=== PATIENT | male | born 1960 | race Caucasian/White ===

== ENCOUNTER → 2018-10-13 | Outpatient (CLI) | payer OTHER ==
--- NOTE | 2018-10-13 15:09 | XR ---
Left shoulder HISTORY: Left shoulder pain 3 views of the left shoulder There is joint space loss, remodeling the humeral head, marginal spurring and subchondral sclerosis a nd geode formation. Alignment is maintained. Left lung apex as visualized is normal. Arthropathy pres ent at the acromioclavicular joint. No fracture or dislocation. IMPRESSION: Osteoarthritis is advanced within the left shoulder.
== END | disposition home or self-care (01) ==
LOC: RADXRMAIN 14:49
PROVIDERS: ATTEND Emergency Medicine
DX: M19.012 Primary osteoarthritis, left shoulder (principal)

== ENCOUNTER → 2019-03-11 | Outpatient (CLI) | payer BC ==
--- NOTE | 2019-03-11 16:54 | P.HPBAR ---
Bariatric H&P - History & Physicial H&P Date: 03/11/19 History & Physicial: Visit/CC: Patient initial contact: Initial weight: Initial weight in pounds: Height: 5 ft 7 in Initial BMI: Last weight: Current weight: 175.812 kg Current weight in pounds: Current BMI: [place] body weight (based on NIH guidelines): Excess body weight loss: The patient is a 58 year-old M who presents for Bariatric Assessment. Highest was 415 pounds and on his own went down to 320 pounds. He needs shoulder surgery and requested by his doctors to have weight loss surgery. He reports new depression with loss of occupation. He has hypertension. He denies sleep apnea. He has history of blood clots. He had lost 100 pounds in the past with a hat band attacher as he had leg swelling. Needs full work-up Recommend EGD Recommend EKG Past Medical History Past Medical History: GERD/Reflux Additional Past Medical History / Comment(s): Meniere's disease (Takes Dyazide for this condition), Left shoulder pain "bone on bone", History of Any Multi-Drug Resistant Organisms: None Reported Past Surgical History: Hernia Repair Additional Past Surgical History / Comment(s): Left leg varicose vein stripping and ablation and sclerotherapy (3 times), Right leg vein stripping and sclerotherapy, (pt states 2 different doctors have told him that he has the "worst veins they've ever seen in their career."), umbilical hernia repair with mesh, stents placed in bilateral exteriror iliac veins and common iliac veins (stents were placed through incisions on back), Past Anesthesia/Blood Transfusion Reactions: No Reported Reaction Additional Past Anesthesia/Blood Transfusion Reaction / Comm: No history of blood transfusions to date Past Psychological History: Depression Additional Psychological History / Comment(s): 03/11/19: Pt states he takes herbal supplements (had been given an antidepressment but it made him deathly sick, was given another med to try but was fearful and so has been doing well on his herbal supplements) Smoking Status: Former smoker Past Alcohol Use History: Occasional Additional Past Alcohol Use History / Comment(s): patient smoked off and on beginning at age 18 quit at age 43, highest smoking amount was 1 pack/day. May have one or two beers/week. Additional Drug Use History / Comment(s): uses hemp oil twice daily - Past Family History Mother Additional Family Medical History / Comment(s): bilateral knee and hip replacement Father Family Medical History: Osteoarthritis (OA) Additional Family Medical History / Comment(s): at age 78 Bariatric Checklist Checklist: Plan: Checklist: EGD: 1. Hiatal hernia: 2. H. Pylori: HgbA1c: Vitamin D: Smoking: Former smoker Primary care physician referral: Psychiatry clearance: Cardiology clearance: Sleep study: Diet journal: VTE risk score: VTE risk level: Rehab needs at discharge:
[2019-03-11 18:03] VITALS: BP 179/82; PULSE 68; TEMP 98.8; BMI 60.7
[2019-03-11 18:03] LABS: HCT 41.5 % (39.0-53.0); HGB 13.4 gm/dL (13.0-17.5); MCH 28.2 pg (25.0-35.0); MCHC 32.4 g/dL (31.0-37.0); Mean Platelet Volume 6.3; Platelet Count 339 k/uL (150-450); RBC 4.76 m/uL (4.30-5.90); RDW 13.5 % (11.5-15.5); WBC 6.9 k/uL (3.8-10.6)
[2019-03-11 18:16] LABS: Partial Thromboplastin Time 25.1 sec (22.0-30.0); Prothrombin Time 10.3 sec (9.0-12.0)
[2019-03-12 00:44] LABS: Iron Saturation 15.29 (15.00-50.00)
[2019-03-12 00:53] LABS: Vitamin D 25 Hydroxy 23.4 ng/mL (30.0-100.0)
[2019-03-12 01:02] LABS: Folate, Serum >24.0 ng/mL
[2019-03-12 01:21] LABS: Hemoglobin A1C 5.7 % (4.0-6.0)
[2019-03-12 01:45] LABS: African American GFR (CKD) 115.7 (60.0-200.0); Albumin 4.2 g/dL (3.80-4.90); Albumin/Globulin Ratio 1.75 (1.60-3.17); Anion Gap 11.2 mmol/L (4.00-12.00); BUN/Creat Ratio 13.75 Ratio (12.00-20.00); Calcium 9.3 mg/dL (8.7-10.3); Carbon Dioxide 27.8 mmol/L (21.6-31.8); Globulin 2.4 g/dL (1.6-3.3); LDL Cholesterol,Calculated 109.2 mg/dL (0.0-131.0); Phosphorus 4.2 mg/dL (2.4-5.1); Total Bilirubin 0.5 mg/dL (0.3-1.2); Total Protein 6.6 g/dL (6.2-8.2); VLDL Calculation 17.8 mg/dL (5.00-40.00)
[2019-03-12 14:15] LABS: Zinc, Serum 80 ug/dL (60-130)
[2019-03-13 06:19] LABS: Vitamin A 63 ug/dL (38-106)
[2019-03-13 06:27] LABS: Vit B1(Thiamine) 90 ug/L (38-122)
== END | disposition home or self-care (01) ==
LOC: BARWHC3 15:22
PROVIDERS: ATTEND Surgery Plastic and Reconstructive Surgery
DX: E66.01 Morbid (severe) obesity due to excess calories (principal); E21.1 Secondary hyperparathyroidism, not elsewhere classified; E89.1 Postprocedural hypoinsulinemia; D50.9 Iron deficiency anemia, unspecified; K90.9 Intestinal malabsorption, unspecified; E55.9 Vitamin D deficiency, unspecified; K76.9 Liver disease, unspecified; N19 Unspecified kidney failure; K50.90 Crohn's disease, unspecified, without complications; Z87.891 Personal history of nicotine dependence
CPT/HCPCS: 36415; 80053; 80061; 82306; 82607; 82728; 82746; 83036; 83540; 83550; 83735; 83970; 84100; 84134; 84255; 84425; 84443; 84590; 84630; 85027; 85610; 85730; 93005

== ENCOUNTER 2019-05-11 11:17 | Day surgery (SDC) | payer BC ==
[2019-05-06 15:35] VITALS: BMI 60.7
--- NOTE | 2019-05-11 07:18 | P.GSHP ---
History of Present Illness H&P Date: 05/11/19 CHIEF COMPLAINT: GERD HISTORY OF PRESENT ILLNESS: The patient is a 58-year-old male who presents reports gastroesophageal reflux disease. Upper endoscopy was offered for further evaluation and management. PAST MEDICAL HISTORY: Please see list. PAST SURGICAL HISTORY: Please see list. MEDICATIONS: Please see list. ALLERGIES: Please see list. SOCIAL HISTORY: No illicit drug use FAMILY HISTORY: No reports of Crohn disease or ulcerative colitis. REVIEW OF ORGAN SYSTEMS: CONSTITUTIONAL: No reports of fevers or chills. GI: Denies any blood in stools or constipation. PHYSICAL EXAM: VITAL SIGNS: Stable GENERAL: Well-developed and pleasant in no acute distress. HEENT: No scleral icterus. Extraocular movements grossly intact. Moist buccal mucosa. NECK: Supple without lymphadenopathy. CHEST: Unlabored respirations. Equal bilateral excursions. CARDIOVASCULAR: Regular rate and rhythm. Distal 2+ pulses. ABDOMEN: Soft, nondistended. MUSCULOSKELETAL: No clubbing, cyanosis, or edema. ASSESSMENT: 1. Gastroesophageal reflux disease PLAN: 1. Recommend proceeding with an upper endoscopy Past Medical History Past Medical History: GERD/Reflux, Hypertension, Osteoarthritis (OA) Additional Past Medical History / Comment(s): Meniere's disease (Takes Dyazide for this condition), Left shoulder pain "bone on bone", History of Any Multi-Drug Resistant Organisms: None Reported Past Surgical History: Hernia Repair Additional Past Surgical History / Comment(s): Left leg varicose vein stripping and ablation and sclerotherapy (3 times), Right leg vein stripping and sclerotherapy, umbilical hernia repair with mesh, stents placed in bilateral exteriror iliac veins and common iliac veins (stents were placed through incisions on back), Past Anesthesia/Blood Transfusion Reactions: No Reported Reaction Additional Past Anesthesia/Blood Transfusion Reaction / Comment(s): No history of blood transfusions to date Smoking Status: Former smoker - Past Family History Mother Family Medical History: No Reported History Additional Family Medical History / Comment(s): bilateral knee and hip replacement Father Family Medical History: Osteoarthritis (OA) Additional Family Medical History / Comment(s): at age 78 Medications and Allergies Home Medications Medication Instructions Recorded Confirmed Type Anxiety/Stress [employer] Brand 1 tab PO HS 03/11/19 05/06/19 History [place] Hemp Oil 20 drop PO BID 03/11/19 05/06/19 History Aspirin [Adult Low Dose Aspirin EC] 81 mg PO DAILY 03/11/19 05/06/19 History Cider Vinegar [Apple Cider Vinegar] 300 mg PO DAILY 03/11/19 05/06/19 History Keli 500 mg PO BID 03/11/19 05/06/19 History Glucosamine Sulfate 1,500 mg PO DAILY 03/11/19 05/06/19 History Meloxicam [Mobic] 15 mg PO DAILY 03/11/19 05/06/19 History Multivit-Min/FA/Lycopen/Lutein 1 each PO DAILY 03/11/19 05/06/19 History [Centrum Silver Tablet] Omeprazole [PriLOSEC] 40 mg PO DAILY 03/11/19 05/06/19 History Triamterene-Hctz 37.5-25Mg 1 cap PO DAILY 03/11/19 05/06/19 History [Dyazide 37.5-25 Capsule] Turmeric Root Extract [Turmeric] 1,000 mg PO BID 03/11/19 05/06/19 History Valerian Root 300 mg PO HS 03/11/19 05/06/19 History Cetirizine HCl [Zyrtec] 10 mg PO DAILY 05/06/19 05/06/19 History Ferrous Sulfate [Feosol] 325 mg PO DAILY 05/06/19 05/06/19 History Losartan Potassium [Cozaar] 50 mg PO DAILY 05/06/19 05/06/19 History Allergies Allergy/AdvReac Type Severity Reaction Status Date / Time morphine Allergy Itching Verified 05/06/19 15:08 nortriptyline Allergy NAUSEA , Verified 05/06/19 15:09 HEADACHE
[~2019-05-11 11:17] MED LIST: LACTATED RINGERS 1,000 ML IV SCH; LIDOCAINE 1% 20 ML VIAL (10MG/ML) FOR IV START INTRADERMA PRN
[2019-05-11 12:12] VITALS: TEMP 97.7
[2019-05-11] MEDS ORDERED: PROPOFOL 10 MG/ML 20 ML VIAL IV ONE (13:01)
[2019-05-11] MEDS ORDERED: LIDOCAINE 1% INJ 10MG/ML (20 ML MDV) ONE (13:01)
[2019-05-11 13:29] VITALS: RESP 18
--- NOTE | 2019-05-11 13:37 | P.PCN ---
Date of Procedure: 05/11/19 Description of Procedure: PREOPERATIVE DIAGNOSIS: Gastroesophageal reflux disease. Morbid obesity. POSTOPERATIVE DIAGNOSIS: Morbid obesity. Gastritis. Gastroesophageal reflux disease. Diaphragmatic hiatal hernia OPERATION: Esophagogastroduodenoscopy with biopsies along antrum. SURGEON: Agnieszka Jennings MD ANESTHESIA: MAC. INDICATIONS: The patient is a 48-year-old female who presents with a history of reflux disease. Benefits and risks of the procedure were described. Informed consent was obtained. DESCRIPTION: The patient was brought into the endoscopy suite and laid in the left lateral decubitus position. An Olympus gastroscope was passed along the posterior oropharynx down to the distal esophagus where the squamocolumnar junction was encountered at 40 cm from the incisors. The stomach was entered and no bile reflux was found. Additional findings are listed below. Biopsies with cold f orceps were obtained of the antrum. The first through third portion of the duodenum was examined and unremarkable. Retroflexion of the scope confirmed Hill grade 2 lower esophageal valve. The squamocolumnar junction demonstrated LA grade B erosive esophagitis. The stomach was desufflated. The patient tolerated the procedure well. FINDINGS: Squamocolumnar junction 40 cm from the incisors. Diaphragmatic hiatus at 40 cm. Hill grade 2 lower esophageal valve. LA grade B erosive esophagitis. No active duodenitis. Chronic gastritis RECOMMENDATIONS: Upper endoscopy as needed. Plan - Discharge Summary Discharge Rx Participant: No New Discharge Prescriptions: No Action Valerian Root 300 mg PO HS Keli 500 mg PO BID Cider Vinegar [Apple Cider Vinegar] 300 mg PO DAILY Multivit-Min/FA/Lycopen/Lutein [Centrum Silver Tablet] 1 each PO DAILY Aspirin [Adult Low Dose Aspirin EC] 81 mg PO DAILY Turmeric Root Extract [Turmeric] 1,000 mg PO BID Glucosamine Sulfate 1,500 mg PO DAILY Omeprazole [PriLOSEC] 40 mg PO DAILY Meloxicam [Mobic] 15 mg PO DAILY Triamterene-Hctz 37.5-25Mg [Dyazide 37.5-25 Capsule] 1 cap PO DAILY Anxiety/Stress [employer] Brand 1 tab PO HS [place] Hemp Oil 20 drop PO BID Losartan Potassium [Cozaar] 50 mg PO DAILY Ferrous Sulfate [Feosol] 325 mg PO DAILY Cetirizine HCl [Zyrtec] 10 mg PO DAILY Discharge Medication List Anxiety/Stress [place] Brand 1 tab PO HS 03/11/19 [History] [place] Hemp Oil 20 drop PO BID 03/11/19 [History] Aspirin [Adult Low Dose Aspirin EC] 81 mg PO DAILY 03/11/19 [History] Cider Vinegar [Apple Cider Vinegar] 300 mg PO DAILY 03/11/19 [History] Keli 500 mg PO BID 03/11/19 [History] Glucosamine Sulfate 1,500 mg PO DAILY 03/11/19 [History] Meloxicam [Mobic] 15 mg PO DAILY 03/11/19 [History] Multivit-Min/FA/Lycopen/Lutein [Centrum Silver Tablet] 1 each PO DAILY 03/11/19 [History] Omeprazole [PriLOSEC] 40 mg PO DAILY 03/11/19 [History] Triamterene-Hctz 37.5-25Mg [Dyazide 37.5-25 Capsule] 1 cap PO DAILY 03/11/19 [History] Turmeric Root Extract [Turmeric] 1,000 mg PO BID 03/11/19 [History] Valerian Root 300 mg PO HS 03/11/19 [History] Cetirizine HCl [Zyrtec] 10 mg PO DAILY 05/06/19 [History] Ferrous Sulfate [Feosol] 325 mg PO DAILY 05/06/19 [History] Losartan Potassium [Cozaar] 50 mg PO DAILY 05/06/19 [History] [facility] [place] [place] [facility] [place] [facility] Patient Instructions/Handouts: *[facility] - (Anesthesia) Endoscopy Discharge Instructions, Upper Endoscopy (DC), Diet for Stomach Ulcers and Gastritis (GEN), Gastritis (DC) Discharge Disposition: HOME SELF-CARE
[2019-05-11 13:41] VITALS: BP 132/77; PULSE 57
== END 2019-05-11 14:12 | disposition home or self-care (01) ==
LOC: ORWHC2ENDO 11:17
PROVIDERS: ATTEND Surgery Plastic and Reconstructive Surgery
DX: K21.0 Gastro-esophageal reflux disease with esophagitis (principal); K29.50 Unspecified chronic gastritis without bleeding; I10 Essential (primary) hypertension; E66.01 Morbid (severe) obesity due to excess calories; Z68.44 Body mass index [BMI] 60.0-69.9, adult; F41.9 Anxiety disorder, unspecified; K44.9 Diaphragmatic hernia without obstruction or gangrene; Z88.5 Allergy status to narcotic agent; Z88.8 Allergy status to other drugs, medicaments and biological substances; Z87.891 Personal history of nicotine dependence; M19.90 Unspecified osteoarthritis, unspecified site; H81.09 Meniere's disease, unspecified ear; Z79.899 Other long term (current) drug therapy; Z79.82 Long term (current) use of aspirin
CPT/HCPCS: 88305; 43239; J2001; J2704

== ENCOUNTER → 2019-05-20 | Outpatient (CLI) | payer BC ==
[2019-05-20 16:18] VITALS: BP 186/115; PULSE 63; TEMP 97.8; BMI 61.0
--- NOTE | 2019-05-20 16:18 | P.PN ---
Subjective Progress Note Date: 05/20/19 DATE OF SERVICE: 05/20/2019 CHIEF COMPLAINT: Morbid obesity HISTORY OF PRESENT ILLNESS: Justo Davis is a 58-year-old male who comes with lifelong morbid obesity. He is looking into the sleeve gastrectomy. He completed an upper endoscopy. He is doing better. No reports of abdominal pain. He comes in with new findings of vitamin deficiency. He also comes in with new EKG abnormalities. At height of 5 feet 7 inches, his ideal body weight is 158 pounds. His highest weight was 415 pounds. His highest BMI was 65.1. He comes in 387 pounds. His body mass index is 60.7. He is 229 pounds overweight. PAST MEDICAL HISTORY: 1. Morbid obesity due to excess calories 2. Body mass index of 65.1, initial 3. Osteoarthritis of the knees. 4. Osteoarthritis of the lower back. 5. Hypertensive heart disease. 6. Gastroesophageal reflux disease 7. DVT legs 8. Meniere's disease 9. Depressive disorder PAST SURGICAL HISTORY: 1. Varicose vein stripping 2. Umbilical hernia repair 3. Stents bilateral common iliac vein HOME MEDICATIONS: Home Medications Medication Instructions Recorded Confirmed Anxiety/Stress [employer] Brand 1 tab PO HS 03/11/19 03/11/19 [place] Hemp Oil 20 drop PO BID 03/11/19 03/11/19 Aspirin [Adult Low Dose Aspirin EC] 81 mg PO DAILY 03/11/19 03/11/19 Cider Vinegar [Apple Cider Vinegar] 300 mg PO DAILY 03/11/19 03/11/19 Keli 500 mg PO BID 03/11/19 03/11/19 Glucosamine Sulfate 1,500 mg PO DAILY 03/11/19 03/11/19 Meloxicam [Mobic] 15 mg PO DAILY 03/11/19 03/11/19 Multivit-Min/FA/Lycopen/Lutein 1 each PO DAILY 03/11/19 03/11/19 [Centrum Silver Tablet] Omeprazole [PriLOSEC] 40 mg PO DAILY 03/11/19 03/11/19 Triamterene-Hctz 37.5-25Mg 1 cap PO DAILY 03/11/19 03/11/19 [Dyazide 37.5-25 Capsule] Turmeric Root Extract [Turmeric] 1,000 mg PO BID 03/11/19 03/11/19 Valerian Root 300 mg PO HS 03/11/19 03/11/19 ALLERGIES: Allergies Allergy/AdvReac Type Severity Reaction Status Date / Time morphine Allergy Itching Verified 03/11/19 16:05 SOCIAL HISTORY: Past tobacco use. FAMILY HISTORY: No family history of ulcerative colitis disease or Crohn's disease. Family history of morbid obesity. No lupus in the family. No reports of stomach or esophageal cancer. REVIEW OF ORGAN SYSTEMS: CONSTITUTIONAL: At height of 5 feet 7 inches, his ideal body weight is 158 pounds. His highest weight was 415 pounds. His highest BMI was 65.1. He comes in 387 pounds. His body mass index is 60.7. He is 229 pounds overweight. HEENT: Denies any active troubles with vision or hearing. ENDOCRINE: No diabetes. No hypothyroidism. CARDIOVASCULAR: No past reports of palpitations or heart attacks or chest pain. RESPIRATORY: Denies daytime somnolence. No asthma. GASTROINTESTINAL: Denies any bright red blood per rectum. No diarrhea. No constipation. MUSCULOSKELETAL: Has lower back pain and joint pain. Has osteoarthritis of the knees. History of bilateral lower extremity edema. NEURO: No headaches. No seizure disorders. PSYCH: Has depression. No suicidal ideation. RHEUMATOLOGIC: No lupus. No rheumatoid arthritis. HEMATOLOGIC: Denies any abnormal bleeding or bruising. Personal history of DVTs. SKIN: No rash. No skin cancer. PHYSICAL EXAM: VITAL SIGNS: Height 5 foot 7 inches, weight 389 pounds. BMI 61.1 Vital Signs Temp 97.8 F 05/20/19 16:16 Pulse 63 05/20/19 16:16 Resp BP 186/115 05/20/19 16:16 Pulse Ox GENERAL: Well-developed in no acute distress. HEENT: No scleral icterus. Extraocular movements grossly intact. Hears conversational speech. No nasal drainage. NECK: Supple without lymphadenopathy. CHEST: Nonlabored respirations with equal bilateral excursions. CARDIOVASCULAR: Regular rate and regular rhythm. Distal 2+ pulses. ABDOMEN: Obese, soft, nontender, nondistended. MUSCULOSKELETAL: No clubbing, cyanosis. Gross strength 5/5 distal lower extremities. NEURO: No focal or lateralizing signs. Cranial nerves 2 through 12 grossly within normal limits. PSYCH: Appropriate affect. Alert and oriented to person, place and time. SKIN: Good skin turgor. Well perfused. Laboratory Last Values WBC 6.9 k/uL (3.8-10.6) 03/11/19 17:42 RBC 4.76 m/uL (4.30-5.90) 03/11/19 17:42 Hgb 13.4 gm/dL (13.0-17.5) 03/11/19 17:42 Hct 41.5 % (39.0-53.0) 03/11/19 17:42 MCV 87.0 fL (80.0-100.0) 03/11/19 17:42 MCH 28.2 pg (25.0-35.0) 03/11/19 17:42 MCHC 32.4 g/dL (31.0-37.0) 03/11/19 17:42 RDW 13.5 % (11.5-15.5) 03/11/19 17:42 Plt Count 339 k/uL (150-450) 03/11/19 17:42 PT 10.3 sec (9.0-12.0) 03/11/19 17:42 INR 1.0 (<1.2) 03/11/19 17:42 APTT 25.1 sec (22.0-30.0) 03/11/19 17:42 Sodium 142 mmol/L (135-145) 03/11/19 17:42 Potassium 4.0 mmol/L (3.5-5.5) 03/11/19 17:42 Chloride 103 mmol/L (96-109) 03/11/19 17:42 Carbon Dioxide 27.8 mmol/L (21.6-31.8) 03/11/19 17:42 Anion Gap 11.20 mmol/L (4.00-12.00) 03/11/19 17:42 BUN 11.0 mg/dL (9.0-27.0) 03/11/19 17:42 Creatinine 0.8 mg/dL (0.6-1.5) 03/11/19 17:42 Est GFR (CKD-EPI)AfAm 115.7 (60.0-200.0) 03/11/19 17:42 Est GFR (CKD-EPI)NonAf 99.9 (60.0-200.0) 03/11/19 17:42 BUN/Creatinine Ratio 13.75 Ratio (12.00-20.00) 03/11/19 17:42 Glucose 86 mg/dL (70-110) 03/11/19 17:[address] Glu mg/dL 117 03/11/19 17:42 Hemoglobin A1c 5.7 % (4.0-6.0) 03/11/19 17:42 Calcium 9.3 mg/dL (8.7-10.3) 03/11/19 17:42 Phosphorus 4.2 mg/dL (2.4-5.1) 03/11/19 17:42 Magnesium 2.0 mg/dL (1.5-2.4) 03/11/19 17:42 Iron 50 ug/dL (65-175) L 03/11/19 17:42 TIBC 327 ug/dL (228-460) 03/11/19 17:42 Iron Saturation 15.29 (15.00-50.00) 03/11/19 17:42 Ferritin 41.5 ng/mL (22.0-322.0) 03/11/19 17:42 Total Bilirubin 0.5 mg/dL (0.3-1.2) 03/11/19 17:42 AST 32 U/L (14-35) 03/11/19 17:42 ALT 24 U/L (10-49) 03/11/19 17:42 Alkaline Phosphatase 62 U/L (41-126) 03/11/19 17:42 Total Protein 6.6 g/dL (6.2-8.2) 03/11/19 17:42 Albumin 4.20 g/dL (3.80-4.90) 03/11/19 17:42 Globulin 2.4 g/dL (1.6-3.3) 03/11/19 17:42 Albumin/Globulin Ratio 1.75 g/dL (1.60-3.17) 03/11/19 17:42 Prealbumin 25.0 mg/dL (18.0-42.0) 03/11/19 17:42 Triglycerides 89.0 mg/dL (0.0-149.0) 03/11/19 17:42 Cholesterol 201 mg/dL (0-200) H 03/11/19 17:42 LDL Cholesterol, Calc 109.2 mg/dL (0.0-131.0) 03/11/19 17:42 VLDL Cholesterol, Calc 17.80 mg/dL (5.00-40.00) 03/11/19 17:42 HDL Cholesterol 74.0 mg/dL (40.0-60.0) H 03/11/19 17:42 Cholesterol/HDL Ratio 2.72 03/11/19 17:42 Vitamin A 63 ug/dL (38-106) 03/11/19 17:42 Vitamin B1 90 ug/L (38-122) 03/11/19 17:42 Vitamin B12 565.0 pg/mL (200.0-944.0) 03/11/19 17:42 Vitamin D 25-Hydroxy 23.4 ng/mL (30.0-100.0) L 03/11/19 17:42 Folate >24.0 ng/mL 03/11/19 17:42 TSH 0.690 uIU/mL (0.350-5.500) 03/11/19 17:42 PTH Intact 50.9 pg/mL (14.0-72.0) 03/11/19 17:42 Selenium 122 mcg/L (63-160) 03/11/19 17:42 Zinc 80 ug/dL (60-130) 03/11/19 17:42 EKG EKG PERFORMED 03/11/19 17:42 Iron is low Vitamin D is low STUDIES: EKG shows right ventricular conduction delay EGD FINDINGS: Squamocolumnar junction 40 cm from the incisors. Diaphragmatic hiatus at 40 cm. Hill grade 2 lower esophageal valve. LA grade B erosive esophagitis. No active duodenitis. Chronic gastritis Final Pathologic Diagnosis GASTRIC ANTRUM, BIOPSIES: Chronic gastritis. Helicobacter organisms are not identified on routine H+E stained sections. ASSESSMENT: 1. Morbid obesity due to excess calories 2. Body mass index of 65.1, initial 3. Osteoarthritis of the knees. 4. Osteoarthritis of the lower back. 5. Hypertensive heart disease. 6. Gastroesophageal reflux disease 7. DVT legs 8. Meniere's disease 9. Depressive disorder 10. Iron deficiency anemia 11. Vitamin D deficiency 12. Chronic gastritis PLAN: 1. Overall, EGD reviewed and medications reviewed. 2. He has EKG abnormality and recommend cardiac risk assessment. 3. Labs reviewed with vitamin D deficiency. 4. [facility] calculator reviewed. Objective - Vital Signs Vital signs: Intake & Output 05/19/19 05/20/19 05/20/19 18:59 06:59 18:59 Weight 176.901 kg
== END | disposition home or self-care (01) ==
LOC: BARWHC3 14:54
PROVIDERS: ATTEND Surgery Plastic and Reconstructive Surgery
DX: E66.01 Morbid (severe) obesity due to excess calories (principal); Z68.44 Body mass index [BMI] 60.0-69.9, adult; M17.10 Unilateral primary osteoarthritis, unspecified knee; M47.816 Spondylosis without myelopathy or radiculopathy, lumbar region; I11.9 Hypertensive heart disease without heart failure; K21.9 Gastro-esophageal reflux disease without esophagitis; I82.409 Acute embolism and thrombosis of unspecified deep veins of unspecified lower extremity; H81.09 Meniere's disease, unspecified ear; F32.9 Major depressive disorder, single episode, unspecified; D50.9 Iron deficiency anemia, unspecified; E55.9 Vitamin D deficiency, unspecified; K29.50 Unspecified chronic gastritis without bleeding; Z87.891 Personal history of nicotine dependence; Z79.82 Long term (current) use of aspirin; Z79.1 Long term (current) use of non-steroidal anti-inflammatories (NSAID); Z79.899 Other long term (current) drug therapy; Z88.6 Allergy status to analgesic agent
CPT/HCPCS: 99211

== ENCOUNTER → 2019-06-08 | Outpatient (CLI) | payer BC ==
[2019-06-08 09:41] VITALS: BMI 60.6
== END | disposition home or self-care (01) ==
LOC: BARWHC3 08:40
PROVIDERS: ATTEND Surgery Plastic and Reconstructive Surgery
DX: E66.01 Morbid (severe) obesity due to excess calories (principal)
CPT/HCPCS: 97804

== ENCOUNTER → 2020-04-19 | Outpatient (CLI) | payer BC, OTHER ==
[2020-04-19 14:54] LABS: Basophils # (A) 0.1 k/uL (0-0.2); Basophils % (A) 1 %; Eosinophils # (A) 0.1 k/uL (0-0.7); Eosinophils % (A) 1 %; HCT 43.9 % (39.0-53.0); HGB 13.8 gm/dL (13.0-17.5); Lymphocytes # (A) 1.2 k/uL (1.0-4.8); Lymphocytes % (A) 15 %; MCH 26.9 pg (25.0-35.0); MCHC 31.5 g/dL (31.0-37.0); MCV 85.3 fL (80.0-100.0); Mean Platelet Volume 6.8; Monocytes # (A) 0.5 k/uL (0-1.0); Monocytes % (A) 7 %; Neutrophils # (A) 6.1 k/uL (1.3-7.7); Neutrophils % (A) 76 %; Platelet Count 346 k/uL (150-450); RBC 5.15 m/uL (4.30-5.90); RDW 13.1 % (11.5-15.5)
[2020-04-19 14:55] LABS: ALT 38 U/L (4-49); AST 45 U/L (17-59); African American GFR (CKD) >90 (>60 ml/min/1.73 sqM); Albumin 4.3 g/dL (3.5-5.0); Alkaline Phosphatase 60 U/L (38-126); Anion Gap 8 mmol/L; Blood Urea Nitrogen 25 mg/dL (9-20); Calcium 9.4 mg/dL (8.4-10.2); Carbon Dioxide 30 mmol/L (22-30); Chloride 94 mmol/L (98-107); Glucose 90 mg/dL (74-99); Non-African American GFR(CKD) >90 (>60 ml/min/1.73 sqM); Potassium 4.5 mmol/L (3.5-5.1); Sodium 132 mmol/L (137-145); Total Bilirubin 0.6 mg/dL (0.2-1.3); Total Protein 7.5 g/dL (6.3-8.2)
== END | disposition home or self-care (01) ==
LOC: LABPAT 13:52
PROVIDERS: ATTEND Surgery Plastic and Reconstructive Surgery
DX: Z01.818 Encounter for other preprocedural examination (principal)
CPT/HCPCS: 36415; 80053; 85025; 86850; 86900; 86901; 93005

== ENCOUNTER 2020-04-25 07:30 | Inpatient (IN) | payer BC ==
--- NOTE | 2020-04-25 06:39 | P.GSHP ---
History of Present Illness H&P Date: 04/25/20 DATE OF SERVICE: 04/25/2020 CHIEF COMPLAINT: Morbid obesity HISTORY OF PRESENT ILLNESS: Justo Davis is a 59-year-old male who comes with lifelong morbid obesity. He is looking into the sleeve gastrectomy. He completed an upper endoscopy. At height of 5 feet 7 inches, his ideal body weight is 158 pounds. His highest weight was 415 pounds. His highest BMI was 65.1. He comes in 386 pounds from 387 pounds, 1 year ago. He lost 1 pound in 1 year. His body mass index is 60.6. He is 228 pounds overweight. PAST MEDICAL HISTORY: 1. Morbid obesity due to excess calories 2. Body mass index of 65.1, initial 3. Osteoarthritis of the knees. 4. Osteoarthritis of the lower back. 5. Hypertensive heart disease. 6. Gastroesophageal reflux disease 7. DVT legs 8. Meniere's disease 9. Depressive disorder PAST SURGICAL HISTORY: 1. Varicose vein stripping 2. Umbilical hernia repair 3. Stents bilateral common iliac vein HOME MEDICATIONS: Home Medications Medication Instructions Recorded Confirmed Anxiety/Stress [employer] 1 tab PO HS 03/11/19 03/11/19 [place] [employer] Oil 20 drop PO BID 03/11/19 03/11/19 Aspirin [Adult Low Dose Aspirin EC] 81 mg PO DAILY 03/11/19 03/11/19 Cider Vinegar [Apple Cider Vinegar] 300 mg PO DAILY 03/11/19 03/11/19 Keli 500 mg PO BID 03/11/19 03/11/19 Glucosamine Sulfate 1,500 mg PO DAILY 03/11/19 03/11/19 Meloxicam [Mobic] 15 mg PO DAILY 03/11/19 03/11/19 Multivit-Min/FA/Lycopen/Lutein 1 each PO DAILY 03/11/19 03/11/19 [Centrum Silver Tablet] Omeprazole [PriLOSEC] 40 mg PO DAILY 03/11/19 03/11/19 Triamterene-Hctz 37.5-25Mg 1 cap PO DAILY 03/11/19 03/11/19 [Dyazide 37.5-25 Capsule] Turmeric Root Extract [Turmeric] 1,000 mg PO BID 03/11/19 03/11/19 Valerian Root 300 mg PO HS 03/11/19 03/11/19 ALLERGIES: Allergies Allergy/AdvReac Type Severity Reaction Status Date / Time morphine Allergy Itching Verified 03/11/19 16:05 SOCIAL HISTORY: Past tobacco use. FAMILY HISTORY: No family history of ulcerative colitis disease or Crohn's disease. Family history of morbid obesity. No lupus in the family. No reports of stomach or esophageal cancer. REVIEW OF ORGAN SYSTEMS: CONSTITUTIONAL: At height of 5 feet 7 inches, his ideal body weight is 158 pounds. His highest weight was 415 pounds. His highest BMI was 65.1. HEENT: Denies any active troubles with vision or hearing. ENDOCRINE: No diabetes. No hypothyroidism. CARDIOVASCULAR: No past reports of palpitations or heart attacks or chest pain. RESPIRATORY: Denies daytime somnolence. No asthma. GASTROINTESTINAL: Denies any bright red blood per rectum. No diarrhea. No constipation. MUSCULOSKELETAL: Has lower back pain and joint pain. Has osteoarthritis of the knees. History of bilateral lower extremity edema. NEURO: No headaches. No seizure disorders. PSYCH: Has depression. No suicidal ideation. RHEUMATOLOGIC: No lupus. No rheumatoid arthritis. HEMATOLOGIC: Denies any abnormal bleeding or bruising. Personal history of DVTs. SKIN: No rash. No skin cancer. PHYSICAL EXAM: VITAL SIGNS: Height 5 foot 7 inches, weight 386 pounds. BMI 60.6 GENERAL: Well-developed in no acute distress. HEENT: No scleral icterus. Extraocular movements grossly intact. Hears conversational speech. No nasal drainage. NECK: Supple without lymphadenopathy. CHEST: Nonlabored respirations with equal bilateral excursions. CARDIOVASCULAR: Regular rate and regular rhythm. Distal 2+ pulses. ABDOMEN: Obese, soft, nontender, nondistended. MUSCULOSKELETAL: No clubbing, cyanosis. Gross strength 5/5 distal lower extremities. NEURO: No focal or lateralizing signs. Cranial nerves 2 through 12 grossly within normal limits. PSYCH: Appropriate affect. Alert and oriented to person, place and time. SKIN: Good skin turgor. Well perfused. ASSESSMENT: 1. Morbid obesity due to excess calories 2. Body mass index of 65.1 to 60.6 3. Osteoarthritis of the knees. 4. Osteoarthritis of the lower back. 5. Hypertensive heart disease. 6. Gastroesophageal reflux disease 7. DVT legs 8. Meniere's disease 9. Depressive disorder 10. Iron deficiency anemia 11. Vitamin D deficiency 12. Chronic gastritis PLAN: 1. Bariatric options between a sleeve, band and a Natasha-en-Y gastric bypass were reviewed in detail. The patient elected for a sleeve gastrectomy. Robotic assisted approach described. 2. The [place] [facility] Data was also reviewed with benefits and risks as described. 3. An 8 page second-generation bariatric consent form was reviewed in detail including potential of bleeding, infection, leaks, adequate weight loss, nutritional deficiencies which the patient demonstrated understanding of the risks. 4. A 2 week high-protein low caloric 800 kcal diet described to address hepatomegaly. 5. Preoperative labs including complete metabolic panel and CBC with type and screen recommended. 6. DVT prophylaxis per [place] [facility]. 7. Antibiotic prophylaxis. 8. Inpatient hospitalization anticipated for more than 2 nights. 9. All questions and concerns were addressed with the patient. Past Medical History Past Medical History: Chest Pain / Angina, Deep Vein Thrombosis (DVT), GERD/Reflux, Hypertension, Osteoarthritis (OA) Additional Past Medical History / Comment(s): Meniere's disease (Takes Dyazide for this condition), Left shoulder pain "bone on bone", varicose veins, sm "irritation in stomach", hx gout, hx gangrene "both lower legs" History of Any Multi-Drug Resistant Organisms: None Reported Past Surgical History: Hernia Repair Additional Past Surgical History / Comment(s): Left leg varicose vein stripping and ablation and sclerotherapy (3 times), Right leg vein stripping and sclerotherapy, umbilical hernia repair with mesh, stents placed in bilateral exteriror iliac veins and common iliac veins , surgery to remove gangrene left lower leg Past Anesthesia/Blood Transfusion Reactions: No Reported Reaction Additional Past Anesthesia/Blood Transfusion Reaction / Comment(s): No history of blood transfusions to date Smoking Status: Former smoker - Past Family History Mother Family Medical History: No Reported History Additional Family Medical History / Comment(s): . Father Family Medical History: Osteoarthritis (OA) Additional Family Medical History / Comment(s): at age 78 Medications and Allergies Home Medications Medication Instructions Recorded Confirmed Type Aspirin [Adult Low Dose Aspirin EC] 81 mg PO DAILY 03/11/19 04/18/20 History Cider Vinegar [Apple Cider Vinegar] 300 mg PO DAILY 03/11/19 04/18/20 History Keli 500 mg PO DAILY 03/11/19 04/18/20 History Multivit-Min/FA/Lycopen/Lutein 1 each PO DAILY 03/11/19 04/18/20 History [Centrum Silver Tablet] Omeprazole [PriLOSEC] 40 mg PO DAILY 03/11/19 04/18/20 History Triamterene-Hctz 37.5-25Mg 1 cap PO DAILY 03/11/19 04/18/20 History [Dyazide 37.5-25 Capsule] Turmeric Root Extract [Turmeric] 1,000 mg PO BID 03/11/19 04/18/20 History Valerian Root 300 mg PO HS 03/11/19 04/18/20 History Cetirizine HCl [Zyrtec] 10 mg PO DAILY PRN 05/06/19 04/18/20 History Ferrous Sulfate [Feosol] 325 mg PO DAILY 05/06/19 04/18/20 History Losartan Potassium [Cozaar] 100 mg PO DAILY 05/06/19 04/18/20 History Naproxen 500 mg PO BID 02/17/20 04/18/20 History Allergies Allergy/AdvReac Type Severity Reaction Status Date / Time morphine Allergy Itching/ Verified 04/18/20 08:54 nortriptyline Allergy NAUSEA , Verified 04/06/20 14:52 HEADACHE
[~2020-04-25 07:30] MED LIST changes: +ACETAMINOPHEN TAB 500 MG TAB PO STA; +CHLORHEXIDINE GLUCONATE 15 ML CUP MUCOUS MEM ONE; +DEXAMETHASONE SOD PHOSPHATE 10 MG/ML 1 ML VIAL IV ONE; +ENOXAPARIN 40 MG/0.4 ML SYRINGE SQ STA; +GABAPENTIN 300 MG CAP PO STA; +HYDROmorphone 0.5 MG/0.5 ML SYRINGE IVP PRN; -LIDOCAINE 1% 20 ML VIAL (10MG/ML) FOR IV START INTRADERMA PRN; +ONDANSETRON 4 MG/2 ML VIAL IVP ONE; +PANTOPRAZOLE 40 MG/10 ML VIAL IV STA; +SCOPOLAMINE 1.5MG/72HR PATCH TRANSDERM ONE; +TAMSULOSIN 0.4 MG CAP.ER.24H PO STA; +ceFAZolin 3 GM in SODIUM CHLORIDE 0.9% 100 ML IVPB ONE
[2020-04-25 08:49] LABS: Glucose,Whole Blood 89 mg/dL (75-99)
[2020-04-25 09:12] LABS: Albumin 4.4 g/dL (3.5-5.0); Calcium 9.3 mg/dL (8.4-10.2); Potassium 3.8 mmol/L (3.5-5.1); Total Bilirubin 0.9 mg/dL (0.2-1.3); Total Protein 7.6 g/dL (6.3-8.2)
[2020-04-25] MEDS ORDERED: NALOXONE 0.4 MG/ML 1 ML VIAL IV PRN (09:58)
[2020-04-25] MEDS ORDERED: ONDANSETRON 4 MG/2 ML VIAL IVP PRN (09:58)
--- NOTE | 2020-04-25 09:58 | P.HPADDEND ---
H&P Addendum H&P Addendum Date: 04/25/20 Notified by anesthesiologist, Dr. Huynh, patient's sodium is extremely low, 129. Patient reports having headaches and troubles with mentation during his two week protein diet and recent weight loss of almost 40 pounds. Patient reports decreased swelling of the bilateral legs. As patient has symptomatic hyponatremia, will admit. Patient re-scheduled for sleeve gastrectomy during current hospitalization after symptomatic hyponatremia resolves
[2020-04-25] MEDS ORDERED: LORATADINE 10 MG TAB PO PRN (10:08)
[2020-04-25] MEDS: SODIUM CHLORIDE 0.9% 1,000 ML IV SCH ×2 (10:33→17:12)
[2020-04-25 13:03] VITALS: BMI 56.8
--- NOTE | 2020-04-25 18:20 | P.PN ---
Progress Note - Text Progress Note Date: 04/25/20 Diet adjusted to bariatric full liquid diet for protein shakes. Patient being seen by medicine for management of hyponatremia. Pending resolution of hyponatremia, sleeve gastrectomy for Saturday
--- NOTE | 2020-04-25 19:05 | P.CONS ---
History of Present Illness - Reason for Consult Consult date: 04/25/20 Hyponatremia Requesting physician: Agnieszka Jennings - Chief Complaint Hyponatremia - History of Present Illness 59-year-old male with PMH of morbid obesity, hypertension, DVT completed Coumadin therapy presents to [facility] for elective surgery. He was planned to undergo gastric sleeve. His surgery got held due to hyponatremia. [facility] physicians has been consulted for medical management of this patient. Patient reports vague headaches has been ongoing for the past 2 days. He reports lightheadedness especially when going from a laying or sitting to a standing position. He denies any lower extremity edema, nausea or vomiting, fever or chills, cough, chest pain, shortness of breath, palpitations, changes in urination or bowel habits. No numbness/weakness/tingling of the extremities. Of note, patient reports a restricted diet to 800 josue over the last few weeks. He has also reporting decreased salt intake. Review of Systems Pertinent positives and negatives as discussed in HPI, a complete review of systems was performed and all other systems are negative. Past Medical History Past Medical History: Chest Pain / Angina, Deep Vein Thrombosis (DVT), GERD/Reflux, Hypertension, Osteoarthritis (OA) Additional Past Medical History / Comment(s): Meniere's disease (Takes Dyazide for this condition), LEFT LEG DVT; Left shoulder pain "bone on bone", varicose veins, "irritation in stomach", hx gout, LEFT LEG GANGRENE History of Any Multi-Drug Resistant Organisms: None Reported Past Surgical History: Hernia Repair Additional Past Surgical History / Comment(s): Left leg varicose vein stripping and ablation and sclerotherapy (3 times), Right leg vein stripping and sclerotherapy, umbilical hernia repair with mesh, stents placed in bilateral exteriror iliac veins and common iliac veins , surgery to remove gangrene left lower leg Past Anesthesia/Blood Transfusion Reactions: No Reported Reaction Additional Past Anesthesia/Blood Transfusion Reaction / Comm: No history of blood transfusions to date Past Psychological History: Depression Smoking Status: Former smoker Past Alcohol Use History: Occasional Additional Past Alcohol Use History / Comment(s): STARTED SMOKING AT AGE 17 QUIT ON AND OFF LAST QUIT AT AGE 43 SMOKED 3/4 - 1PPD Past Drug Use History: None Reported - Past Family History Mother Family Medical History: No Reported History Additional Family Medical History / Comment(s): . Father Family Medical History: Osteoarthritis (OA) Additional Family Medical History / Comment(s): at age 78 Medications and Allergies Home Medications Medication Instructions Recorded Confirmed Type Aspirin [Adult Low Dose Aspirin EC] 81 mg PO DAILY 03/11/19 04/18/20 History Cider Vinegar [Apple Cider Vinegar] 300 mg PO DAILY 03/11/19 04/18/20 History Keli 500 mg PO DAILY 03/11/19 04/18/20 History Multivit-Min/FA/Lycopen/Lutein 1 each PO DAILY 03/11/19 04/18/20 History [Centrum Silver Tablet] Omeprazole [PriLOSEC] 40 mg PO DAILY 03/11/19 04/18/20 History Triamterene-Hctz 37.5-25Mg 1 cap PO DAILY 03/11/19 04/18/20 History [Dyazide 37.5-25 Capsule] Turmeric Root Extract [Turmeric] 1,000 mg PO BID 03/11/19 04/18/20 History Valerian Root 300 mg PO HS 03/11/19 04/18/20 History Cetirizine HCl [Zyrtec] 10 mg PO DAILY PRN 05/06/19 04/18/20 History Ferrous Sulfate [Feosol] 325 mg PO DAILY 05/06/19 04/18/20 History Losartan Potassium [Cozaar] 100 mg PO DAILY 05/06/19 04/18/20 History Naproxen 500 mg PO BID 02/17/20 04/18/20 History Allergies Allergy/AdvReac Type Severity Reaction Status Date / Time morphine Allergy Itching/ Verified 04/18/20 08:54 nortriptyline Allergy NAUSEA , Verified 04/06/20 14:52 HEADACHE Physical Exam Vitals: Vital Signs Temp Pulse Pulse Resp BP BP Pulse Ox 04/25/20 11:00 97.9 F 66 16 127/76 98 04/25/20 10:52 97.9 F 68 18 127/76 97 04/25/20 08:56 96.8 F L 67 20 127/69 99 04/25/20 08:38 96.8 F L 67 20 127/69 99 Intake and Output 04/24/20 04/25/20 04/25/20 22:59 06:59 14:59 Intake Total 200 Balance 200 Intake: IV 200 Other: Weight 174.6 kg General: [non toxic], [no distress], [appears at stated age], morbidly obese Derm: [warm], [dry] Head: [atraumatic], [normocephalic], [symmetric] Eyes: [EOMI], [no lid lag], [anicteric sclera] Mouth: [no lip lesion], [mucus membranes moist] Cardiovascular: [S1S2 reg], [no murmur], [positive posterior tibial pulse bilateral], Lungs: [CTA bilateral], [no rhonchi, no rales] , [no accessory muscle use] Abdominal: [soft], [ nontender to palpation], [no guarding], [no appreciable organomegaly] Ext: [no gross muscle atrophy], [no edema], [no contractures] Neuro: [ CN II-XI grossly intact], [no focal neuro deficits] Psych: [Alert], [oriented], [appropriate affect] Results CBC & Chem 7: 04/25/20 08:43 Labs: Abnormal Lab Results - Last 24 Hours (Table) 04/25/20 Range/Units 08:43 Sodium 129 L (137-145) mmol/L Chloride 92 L (98-107) mmol/L BUN 30 H (9-20) mg/dL AST 77 H (17-59) U/L ALT 56 H (4-49) U/L Assessment and Plan Assessment: Symptomatic hypochloremic hyponatremia, hypovolemic Elevated liver enzymes Hypertension GERD Morbid obesity with BMI 56.8 Patient's hyponatremia is likely hypovolemic related to diuretic use and low salt intake. Losartan, triamterene and hydrochlorothiazide will be held. Patient has been started on normal saline at 130 mL/h. Urine and serum osmolality ordered along with urine sodium. We will repeat BMP this afternoon. His elevated liver enzymes is likely related to fatty liver and his LFT will be repeated tomorrow morning. His vital signs are currently stable and will be watched, medications adjusted if necessary. Continue Protonix for GERD. General surgery on board for sleeve gastrectomy. He is on Lovenox for DVT prophylaxis. Thank you for this consultation. We will continue to follow this patient through his clinical course. Please call sound physicians with any additional questions or concerns.
[2020-04-26] MEDS: SODIUM CHLORIDE 0.9% 1,000 ML IV SCH ×3 (01:13→16:07)
[2020-04-26 06:21] LABS: Basophils % (A) 1 %; Eosinophils % (A) 1 %; HCT 37.8 % (39.0-53.0); HGB 12.3 gm/dL (13.0-17.5); Lymphocytes # (A) 1.2 k/uL (1.0-4.8); Lymphocytes % (A) 22 %; MCH 27.3 pg (25.0-35.0); MCHC 32.4 g/dL (31.0-37.0); MCV 84.2 fL (80.0-100.0); Mean Platelet Volume 6.9; Monocytes # (A) 0.5 k/uL (0-1.0); Monocytes % (A) 9 %; Neutrophils # (A) 3.4 k/uL (1.3-7.7); Neutrophils % (A) 66 %; Platelet Count 276 k/uL (150-450); RBC 4.48 m/uL (4.30-5.90); WBC 5.2 k/uL (3.8-10.6)
[2020-04-26 09:32] LABS: Magnesium 1.7 mg/dL (1.5-2.4); Phosphorus 2.9 mg/dL (2.4-5.1)
[2020-04-26] MEDS: ENOXAPARIN 40 MG/0.4 ML SYRINGE SQ SCH (10:25)
[2020-04-26] MEDS: PANTOPRAZOLE 40 MG/10 ML VIAL IV SCH (10:28)
--- NOTE | 2020-04-26 13:43 | P.PN ---
Subjective Progress Note Date: 04/26/20 Patient was seen and examined. No acute events overnight. Patient denies any headaches or lightheadedness today. He denies any chest pain, shortness of breath or palpitations. No nausea or vomiting. No fever or chills. Objective - Vital Signs Vital signs: Vital Signs Temp 97.9 F 04/26/20 12:19 Pulse 54 L 04/26/20 12:19 Resp 18 04/26/20 12:19 BP 163/91 04/26/20 12:19 Pulse Ox 99 04/26/20 12:19 Intake & Output 04/25/20 04/26/20 04/26/20 18:59 06:59 18:59 Intake Total 520 Output Total 1000 Balance -480 Weight 174.6 kg Intake: IV 200 Oral 320 Output: Urine 1000 Other: Voiding Method Toilet # Voids 1 - Exam General: [non toxic], [no distress], [appears at stated age], morbidly obese Derm: [warm], [dry] Head: [atraumatic], [normocephalic], [symmetric] Eyes: [EOMI], [no lid lag], [anicteric sclera] Mouth: [no lip lesion], [mucus membranes moist] Cardiovascular: [S1S2 reg], [no murmur], [positive posterior tibial pulse bilateral], Lungs: [CTA bilateral], [no rhonchi, no rales] , [no accessory muscle use] Abdominal: [soft], [ nontender to palpation], [no guarding], [no appreciable organomegaly] Ext: [no gross muscle atrophy], [no edema], [no contractures] Neuro: [no focal neuro deficits] Psych: [Alert], [oriented], [appropriate affect] - Labs CBC & Chem 7: 04/26/20 06:05 04/26/20 06:06 Labs: Abnormal Lab Results - Last 24 Hours (Table) 04/26/20 04/26/20 Range/Units 06:05 06:06 Hgb 12.3 L (13.0-17.5) gm/dL Hct 37.8 L (39.0-53.0) % Sodium 133 L (135-145) mmol/L Assessment and Plan Assessment: Symptomatic hypochloremic hyponatremia, hypovolemic Elevated liver enzymes Hypertension GERD Morbid obesity with BMI 56.8 His sodium is improved from 129-133. Patient's hyponatremia is likely hypovolemic related to diuretic use and low salt intake. Losartan, triamterene and hydrochlorothiazide has been held. Patient has been started on normal saline at 130 mL/h. repeat BMP tomorrow morning. His elevated liver enzymes is likely related to fatty liver and his LFT will be repeated tomorrow morning. Patient will be started on amlodipine by mouth. His vital signs are currently stable and will be watched, medications adjusted if necessary. Continue Protonix for GERD. General surgery on board for sleeve gastrectomy. He is on Lovenox for DVT prophylaxis. Thank you for this consultation. We will continue to follow this patient through his clinical course. Please call sound physicians with any additional questions or concerns.
[2020-04-26] MEDS: amLODIPine 5 MG TAB PO SCH (14:01)
--- NOTE | 2020-04-26 14:36 | P.PN ---
Subjective Progress Note Date: 04/26/20 CHIEF COMPLAINT: Morbid obesity HISTORY OF PRESENT ILLNESS: Patient had to postpone the sleeve gastrectomy due to symptomatic hyponatremia. Sodium has now come up from 129-133. He is feeling better. Patient's headache has improved. He denies any nausea or vomiting. He reports regular bowel movements. He is afebrile. WBC 5.2. Magnesium 1.7 PHYSICAL EXAM: VITAL SIGNS: Reviewed GENERAL: Well-developed in no acute distress. HEENT: No sclera icterus. Extraocular movements grossly intact. Moist buccal mucosa. Head is atraumatic, normocephalic. Hears conversational speech. No nasal drainage. NECK: Supple without lymphadenopathy. CHEST: Non-labored respirations and equal bilateral excursions. CARDIOVASCULAR: Palpable 2+ radial pulses. ABDOMEN: Soft. Nondistended. Nontender. MUSCULOSKELETAL: No clubbing or cyanosis. NEUROLOGIC: No focal or lateralizing signs. Cranial nerves II through XII grossly intact. PSYCH: Appropriate affect. Alert and oriented to person, place and time. SKIN: Well perfused. Good skin turgor. ASSESSMENT: 1. Morbid obesity 2. Hypovolemic hyponatremia 3. Hypomagnesemia PLAN: -Patient is tentatively scheduled for robotic sleeve gastrectomy tomorrow, 04/27/[address] Jennings -Patient nothing by mouth after midnight -Continue with IV fluids, normal saline at 130 cc per hour -Continue to monitor sodium level -Continue to hold diuretics -Replace magnesium and recheck lab in a.m. Physician Airplane Pilot Supervisor note has been reviewed by physician. Signing provider agrees with the documented findings, assessment, and plan of care. Objective - Vital Signs Vital signs: Vital Signs Temp 97.9 F 04/26/20 12:19 Pulse 54 L 04/26/20 12:19 Resp 18 04/26/20 12:19 BP 163/91 04/26/20 12:19 Pulse Ox 99 04/26/20 12:19 Intake & Output 04/25/20 04/26/20 04/26/20 18:59 06:59 18:59 Intake Total 520 200 Output Total 1000 Balance -480 200 Weight 174.6 kg Intake: IV 200 Oral 320 200 Output: Urine 1000 Other: Voiding Method Toilet # Voids 1 - Labs CBC & Chem 7: 04/26/20 06:05 04/26/20 06:06 Labs: Abnormal Lab Results - Last 24 Hours (Table) 04/26/20 04/26/20 Range/Units 06:05 06:06 Hgb 12.3 L (13.0-17.5) gm/dL Hct 37.8 L (39.0-53.0) % Sodium 133 L (135-145) mmol/L
[2020-04-26] MEDS ORDERED: MAGNESIUM SULFATE-D5W PMX 1 GM in DEXTROSE/WATER 1 100ML.BAG IVPB ONE (15:00)
[2020-04-27] MEDS: SODIUM CHLORIDE 0.9% 1,000 ML IV SCH ×3 (00:19→18:07)
[2020-04-27] MEDS ORDERED: fentaNYL (PF) 50 MCG/ML 2 ML AMP IVP PRN (06:00)
[2020-04-27] MEDS ORDERED: ONDANSETRON 4 MG/2 ML VIAL IVP ONE (06:00)
[2020-04-27] MEDS ORDERED: HYDROmorphone 0.5 MG/0.5 ML SYRINGE IVP PRN (06:00)
[2020-04-27] MEDS ORDERED: MIDAZOLAM 2 MG/2 ML VIAL IV PRN (06:00)
[2020-04-27] MEDS ORDERED: fentaNYL (PF) 50 MCG/ML 2 ML AMP IV PRN (06:00)
[2020-04-27] MEDS ORDERED: ceFAZolin 3 GM in SODIUM CHLORIDE 0.9% 100 ML IVPB ONE (06:15)
[2020-04-27] MEDS ORDERED: CHLORHEXIDINE GLUCONATE 15 ML CUP MUCOUS MEM ONE (06:15)
[2020-04-27] MEDS ORDERED: GABAPENTIN 300 MG CAP PO STA (06:20)
[2020-04-27] MEDS ORDERED: ACETAMINOPHEN TAB 500 MG TAB PO STA (06:20)
[2020-04-27] MEDS ORDERED: TAMSULOSIN 0.4 MG CAP.ER.24H PO STA (06:20)
--- NOTE | 2020-04-27 06:25 | P.HPADDEND ---
H&P Addendum H&P Addendum Date: 04/27/20 Patient low sodium has improved from 129 to 133. Patient is clinically stable. Will proceed with sleeve gastrectomy.
[2020-04-27] MEDS: amLODIPine 5 MG TAB PO SCH (09:02)
[2020-04-27] MEDS: PANTOPRAZOLE 40 MG/10 ML VIAL IV SCH (09:02)
[2020-04-27] MEDS: ENOXAPARIN 40 MG/0.4 ML SYRINGE SQ SCH (09:38)
[2020-04-27] MEDS ORDERED: IV FLUID CONTINUATION 1,000 ML IV ONE (10:53)
[2020-04-27] MEDS ORDERED: DEXAMETHASONE SOD PHOSPHATE 10 MG/ML 1 ML VIAL IV ONE (11:11)
[2020-04-27 11:37] LABS: ALT 45 U/L (4-49); AST 44 U/L (17-59); African American GFR (CKD) >90 (>60 ml/min/1.73 sqM); Albumin 3.5 g/dL (3.5-5.0); Albumin/Globulin Ratio 1.3; Alkaline Phosphatase 38 U/L (38-126); Anion Gap 7 mmol/L; Blood Urea Nitrogen 11 mg/dL (9-20); Calcium 8.5 mg/dL (8.4-10.2); Carbon Dioxide 23 mmol/L (22-30); Chloride 102 mmol/L (98-107); Globulin 2.7 g/dL; Glucose 85 mg/dL (74-99); Non-African American GFR(CKD) >90 (>60 ml/min/1.73 sqM); Potassium 3.7 mmol/L (3.5-5.1); Sodium 132 mmol/L (137-145); Total Bilirubin 0.5 mg/dL (0.2-1.3); Total Protein 6.2 g/dL (6.3-8.2)
[2020-04-27] MEDS ORDERED: fentaNYL (PF) 50 MCG/ML 2 ML AMP ONE (12:35)
[2020-04-27] MEDS ORDERED: SUCCINYLCHOLINE CHLORIDE VIAL 200 MG/10 ML VIAL IV ONE (12:35)
[2020-04-27] MEDS ORDERED: NEOSTIGMINE 1 MG/ML 10 ML VIAL ONE (12:35)
[2020-04-27] MEDS ORDERED: GLYCOPYRROLATE 0.2 MG/ML 2 ML VIAL ONE (12:35)
[2020-04-27] MEDS ORDERED: HYDROmorphone (PF) 1 MG/ML ONE (12:35)
[2020-04-27] MEDS ORDERED: PROPOFOL 10 MG/ML 20 ML VIAL IV ONE (12:35)
[2020-04-27] MEDS ORDERED: ROCURONIUM BROMIDE 10 MG/ML 5 ML VIAL IV ONE (12:35)
[2020-04-27] MEDS ORDERED: LIDOCAINE 1% INJ 10MG/ML (20 ML MDV) ONE (12:35)
[2020-04-27] MEDS ORDERED: MIDAZOLAM 2 MG/2 ML VIAL ONE (12:35)
[2020-04-27] MEDS ORDERED: LIDOCAINE 1%-EPI 1:100,000 20 ML VIAL SQ ONE (12:39)
[2020-04-27] MEDS ORDERED: LACTATED RINGERS 1,000 ML IV ONE ×2 (12:40→15:11)
[2020-04-27] MEDS: ONDANSETRON 4 MG/2 ML VIAL IVP SCH ×2 (15:30→18:25)
[2020-04-27] MEDS ORDERED: ACETAMINOPHEN IV (For NPO) 1,000 MG in EMPTY BAG 1 BAG IVPB ONE (16:02)
[2020-04-27] MEDS ORDERED: fentaNYL PCA 500 MCG/50 ML BAG IV PRN (16:08)
[2020-04-27] MEDS ORDERED: NALOXONE 0.4 MG/ML 1 ML VIAL IV PRN (16:08)
--- NOTE | 2020-04-27 16:11 | P.OP ---
Date of Procedure: 04/27/20 Description of Procedure: SURGEON: KARON OROZCO MD PREOPERATIVE DIAGNOSES: 1. Morbid obesity. POSTOPERATIVE DIAGNOSES: 1. Morbid obesity. OPERATION: 1. Robotic assisted daVinci Xi laparoscopic sleeve gastrectomy with 40-Belizean bougie, multiport. 2. Intraoperative esophagogastroduodenoscopy. ANESTHESIA: Gen. local anesthetic ESTIMATED BLOOD LOSS: 30 mL SPECIMENS REMOVED: Sleeve gastrectomy COMPLICATIONS: None. INDICATIONS: is a 59-year-old male with long-standing morbid obesity. He is looking into a sleeve gastrectomy. All surgical options for morbid obesity had been described using the [place] bariatric surgery collaborative comorbidity resolution including complication risk score. A second-generation bariatric consent form was described in detail including the possibility of protein malnutrition, leaks, gastric stricture, venous thrombosis, gastroesophageal reflux disease, need for further surgery for which he demonstrated understanding. Benefits and risks of the procedure were described at length. Informed consent was obtained. DESCRIPTION: The patient was brought into the operating room theater. Preoperatively he had received Lovenox subcutaneously for DVT prophylaxis. Additionally he had Peridex oral solution as an oral decontaminant. After general induction, the abdomen was prepped and draped in standard sterile fashion. An Ioban draping was placed along the abdomen. Lucio catheter was placed. A robotic da Kassie Xi system was prepped and primed. At 15 cm from the xiphoid, proposed port sites were marked with indelible marker along the anterior axillary line bilaterally, mid axillary line bilaterally with each ports were marked 10 to 15 cm from each other. The autopsy assistant port was marked along the left lateral abdominal wall. The robotic stapler port was marked for the right midclavicular line. A 5 mm 0 degrees laparoscopic trocar entry was performed along the left upper quadrant. The abdomen was insufflated to 15 mmHg pressure he tolerated well. Diagnostic laparoscopy demonstrated no injury to bowel, viscera, or mesentery. The liver surface was unremarkable without evidence of hepatomegaly or fatty liver disease. No injury had occurred to the small bowel or viscera. Along the hiatus no recurrent hiatal hernia was found. A 8 mm port was placed along the right upper abdominal wall after exchanging the 5 mm port. A separate 8 mm port was placed along the left lateral abdominal wall. Please note that the ports were placed at least 20 cm away from the target anatomy. Care was taken to check each robotic arms were safely away from collision with the bed or the patient. At the epigastrium, a medium sized N athanson liver retractor was placed under direct visualization with the Iron Disposal Plant Operator placed under the right shoulder of the patient. Next, 12-mm robot stapler port was placed along the right upper quadrant. The camera 8-mm port was maintained along the epigastrium. The patient was repositioned in reverse Trendelenburg position at 16-degrees after lowering the bed. The robot was docked along the left side of the patient. Using a grasper for arm 4, a veseel sealer for arm 3, including grasper for arm 1, the robotic system was docked and primed as described. Instruments were interchanged by the autopsy assistant for stapler loads. The camera was placed at 30-degrees down. I had sat at the console. The pylorus was identified and 6 cm proximally along the greater curvature of the stomach, the short gastrics were mobilized upwards to the angle of His using a vessel sealer. Hemostasis was excellent during this portion of the procedure. Next, the upper pole of the stomach was adherent to the left serjio, which was gently dissected free using atraumatic grasper. The nursing web press roll tender placed a 40-Belizean blunted tip bougie into the stomach. Robotic stapler black loads 60 mm x 2 followed by green 60 mm x 3 were used to create the sleeve. Initial firing was across the antrum of the stomach towards the angle of His. The staple line was completely hemostatic and linear without corkscrewing. Hemostasis was excellent. The space from the angularis incisura of the sleeve was approximately 4 cm. I then went to the head of the bed to perform the intraoperative esophagogastroduodenoscopy leak test. The upper pole of the stomach was bathed using normal saline solution. The scope was withdrawn with careful inspection along the staple line for which no leaks were found along the entire length. Additionally, the sleeve was completely hemostatic without any encroachment along the angularis incisura. Its topology was a soft "J". No stricture was encountered upon placement of the scope. The GI tract was desufflated. The patient tolerated this portion of the procedure well. The scope was completely withdrawn. The robot was undocked. I then rescrubbed into case, whereby the irrigation fluid was aspirated from the abdominal cavity. Tisseel fibrin sealant was placed along the entire staple length. Once dried the Cally liver retractor was removed. Attention was now brought to removal of the specimen. The distal end of the sleeve gastrectomy specimen was brought out through the 12 mm port at the left upper quadrant. The specimen was gently removed en total, corresponding to 20.5 cm x 5.5 cm sleeve gastrectomy specimen. No contamination had occurred during this process. All instruments and pneumoperitoneum including irrigation fluid was removed from the abdominal cavity. The 12 mm port site was irrigated with warm normal saline solution and diluted hydron peroxide. The 12-mm port site was reapproximated using 0 Vicryl and Ish-Curtis of the left upper quadrant. The final incisions were closed using subcuticular interrupted suture of 4-0 Monocryl. Dermabond was applied to the skin once the skin had been cleansed. OptiFoam dressing was placed along the stomach extraction site. At the end of the procedure, needle, sponge, and instrument count was verified correct by the medical or surgical instrument maker. The patient was taken to the postanesthesia care unit in stable condition. He had tolerated the procedure well. Intraoperative films and findings were reviewed with the patient's family. FINDINGS: 1. Negative intraoperative esophagogastrojejunoscopy leak test. 2. No large hiatus hernia. 3. Total of 7 staplers used including 1 - 60 mm black and 2 - 60 mm green and 4- greesn robot kaden used to create the gastric sleeve. 4. Sleeve gastrectomy 30 x 5 cm
[2020-04-27] MEDS ORDERED: ACETAMINOPHEN IV (For NPO) 1,000 MG/100 ML VIAL IVPB ONE (16:18)
[2020-04-27] MEDS: LACTATED RINGERS 1,000 ML IV SCH (16:58)
[2020-04-27] MEDS: 0.9% NACL WITH KCL 20 MEQ/L 1,000 ML IV SCH (17:38)
[2020-04-27] MEDS: HYOSCYAMINE ORAL DROPS 1.875 MG/15 ML BOTTLE PO SCH (18:26)
[2020-04-27] MEDS: ACETAMINOPHEN IV (For NPO) 1,000 MG in EMPTY BAG 1 BAG IVPB SCH (18:30)
[2020-04-27] MEDS: SIMETHICONE 40 MG/0.6 ML DROPS 2,000 MG/30 ML BOTTLE PO SCH (18:34)
[2020-04-27] MEDS: ALBUTEROL NEBULIZED 2.5 MG/3 ML INHALATION SCH (20:01)
[2020-04-28] MEDS: SODIUM CHLORIDE 0.9% 1,000 ML IV SCH (00:02)
[2020-04-28] MEDS: 0.9% NACL WITH KCL 20 MEQ/L 1,000 ML IV SCH ×2 (00:37→06:23)
[2020-04-28] MEDS: ceFAZolin 3 GM in SODIUM CHLORIDE 0.9% 100 ML IVPB SCH ×2 (00:38→09:45)
[2020-04-28] MEDS: ACETAMINOPHEN IV (For NPO) 1,000 MG in EMPTY BAG 1 BAG IVPB SCH ×3 (00:38→13:02)
[2020-04-28] MEDS: ONDANSETRON 4 MG/2 ML VIAL IVP SCH ×4 (00:41→17:11)
[2020-04-28] MEDS: HYOSCYAMINE ORAL DROPS 1.875 MG/15 ML BOTTLE PO SCH ×4 (00:41→17:11)
[2020-04-28] MEDS: SIMETHICONE 40 MG/0.6 ML DROPS 2,000 MG/30 ML BOTTLE PO SCH ×4 (00:41→17:11)
[2020-04-28] MEDS: LACTATED RINGERS 1,000 ML IV SCH (06:25)
[2020-04-28 06:28] LABS: Basophils % (A) 0 %; Eosinophils # (A) 0.1 k/uL (0-0.7); Eosinophils % (A) 1 %; HGB 11.3 gm/dL (13.0-17.5); Lymphocytes # (A) 1.1 k/uL (1.0-4.8); Lymphocytes % (A) 15 %; MCH 27.6 pg (25.0-35.0); MCHC 32.3 g/dL (31.0-37.0); MCV 85.3 fL (80.0-100.0); Mean Platelet Volume 6.9; Monocytes # (A) 0.6 k/uL (0-1.0); Monocytes % (A) 8 %; Neutrophils # (A) 5.6 k/uL (1.3-7.7); Neutrophils % (A) 74 %; Platelet Count 298 k/uL (150-450); RBC 4.11 m/uL (4.30-5.90); RDW 13.4 % (11.5-15.5); WBC 7.5 k/uL (3.8-10.6)
[2020-04-28] MEDS ORDERED: 0.9% NACL WITH KCL 20 MEQ/L 1,000 ML IV SCH (08:00)
[2020-04-28] MEDS: ALBUTEROL NEBULIZED 2.5 MG/3 ML INHALATION SCH ×4 (08:10→21:14)
--- NOTE | 2020-04-28 08:14 | FL ---
EXAMINATION TYPE: FL UGI DATE OF EXAM: 04/28/2020 LIMITED UGI: CLINICAL HISTORY: Morbid Obesity, gastric sleeve surgery yesterday. TECHNIQUE: Limited upper GI-esophagram is performed utilizing 25 oz of Isovue-370. A total of 17 sec onds of fluoroscopic time was utilized during procedure. 26 spot images saved to PACS. COMPARISON: None. FINDINGS: Exam slightly suboptimal secondary to patient's large body habitus. The patient swallowed contrast without difficulty or delay. Esophageal peristalsis and motility are within normal limits. There is good flow of contrast along the diaphragmatic hiatus into proximal stomach and subsequent m ild delay in flow at proximal anastomosis into sleeve. There is mild delay in flow from distal sleeve an anastomosis into pylorus and duodenal sweep. Patient remains asymptomatic. There is no evidence o f contrast extravasation to suggest leak. IMPRESSION: No evidence of leak or significant obstruction status post recent gastric sleeve surgery yesterday.
[2020-04-28 09:20] LABS: African American GFR (CKD) 114.9 (60.0-200.0); Albumin 3.4 g/dL (3.80-4.90); Anion Gap 6.8 mmol/L (4.00-12.00); BUN/Creat Ratio 12.5 Ratio (12.00-20.00); Calcium 8.3 mg/dL (8.7-10.3); Carbon Dioxide 25.2 mmol/L (21.6-31.8); Globulin 1.7 g/dL (1.6-3.3); Magnesium 1.5 mg/dL (1.5-2.4); Non-African American GFR(CKD) 99.2 (60.0-200.0); Phosphorus 3.5 mg/dL (2.4-5.1); Potassium 4.1 mmol/L (3.5-5.5); Total Bilirubin 0.2 mg/dL (0.2-1.2); Total Protein 5.1 g/dL (6.2-8.2)
[2020-04-28] MEDS: ENOXAPARIN 40 MG/0.4 ML SYRINGE SQ SCH (09:43)
[2020-04-28] MEDS: TRIAMTERENE-HCTZ 37.5-25MG 1 EACH CAP PO SCH (09:44)
[2020-04-28] MEDS: PANTOPRAZOLE 40 MG/10 ML VIAL IV SCH (09:44)
[2020-04-28] MEDS: LOSARTAN 50 MG TAB PO SCH (09:44)
[2020-04-28] MEDS: amLODIPine 5 MG TAB PO SCH (09:44)
--- NOTE | 2020-04-28 14:03 | P.PN ---
Subjective Progress Note Date: 04/28/20 Patient was seen and examined. No acute events overnight. Underwent gastric sleeve yesterday. Patient denies any headaches or lightheadedness today. Reports some abdominal discomfort at the site of incision. Tolerating clear liquid diet. He denies any chest pain, shortness of breath or palpitations. No nausea or vomiting. No fever or chills. Objective - Vital Signs Vital signs: Vital Signs Temp 98.6 F 04/28/20 07:16 Pulse 72 04/28/20 11:43 Resp 17 04/28/20 07:16 BP 154/77 04/28/20 07:16 Pulse Ox 95 04/28/20 11:36 Intake & Output 04/27/20 04/28/20 04/28/20 18:59 06:59 18:59 Intake Total 3840 200 Output Total 30 575 Balance 3810 -575 200 Weight 174.6 kg Intake: IV 3840 Sodium Chloride 0.9% 1, 1040 000 ml @ 130 mls/hr IV . Q7H42M [facility] Rx#:[id number] Oral 200 Output: Urine 575 Estimated Blood Loss 30 Other: Voiding Method Toilet Toilet # Voids 1 - Exam General: [non toxic], [no distress], [appears at stated age], morbidly obese Derm: [warm], [dry] Head: [atraumatic], [normocephalic], [symmetric] Eyes: [EOMI], [no lid lag], [anicteric sclera] Mouth: [no lip lesion], [mucus membranes moist] Cardiovascular: [S1S2 reg], [no murmur], [positive posterior tibial pulse bilateral], Lungs: [CTA bilateral], [no rhonchi, no rales] , [no accessory muscle use] Abdominal: [soft], [ nontender to palpation], [no guarding], [no appreciable organomegaly] Ext: [no gross muscle atrophy], [no edema], [no contractures] Neuro: [no focal neuro deficits] Psych: [Alert], [oriented], [appropriate affect] - Labs CBC & Chem 7: 04/28/20 05:56 04/28/20 05:56 Labs: Abnormal Lab Results - Last 24 Hours (Table) 04/28/20 04/28/20 Range/Units 05:56 05:56 RBC 4.11 L (4.30-5.90) m/uL Hgb 11.3 L (13.0-17.5) gm/dL Hct 35.0 L (39.0-53.0) % Calcium 8.3 L (8.7-10.3) mg/dL AST 38 H (14-35) U/L Alkaline Phosphatase 39 L (41-126) U/L Total Protein 5.1 L (6.2-8.2) g/dL Albumin 3.40 L (3.80-4.90) g/dL Assessment and Plan Assessment: Elevated liver enzymes Hypertension GERD Morbid obesity with BMI 56.8 Resolved: Hyponatremia His elevated liver enzymes is likely related to fatty liver and his LFT will be repeated tomorrow morning. Patient will be started on amlodipine by mouth. Triamterene and hydrochlorothiazide has been restarted. Losartan restarted. His vital signs are currently stable and will be watched, medications adjusted if necessary. Continue Protonix for GERD. General surgery on board for sleeve gastrectomy. He is on Lovenox for DVT prophylaxis. Thank you for this consultation. We will continue to follow this patient through his clinical course. Please call sound physicians with any additional questions or concerns.
--- NOTE | 2020-04-28 14:57 | P.PN ---
Subjective Progress Note Date: 04/28/20 CHIEF COMPLAINT: Morbid obesity HISTORY OF PRESENT ILLNESS: Patient is postop day #1 status post Robotic assisted daVinci Xi laparoscopic sleeve gastrectomy and Intraoperative esophagogastroduodenoscopy. Patient is reporting some abdominal pain. He is not passing any gas yet. He denies any nausea or vomiting. He is only used the BUCKLE INSPECTOR a couple of times. He has been up and ambulating in the hallway. He is afebrile. WBC 7.5 hemoglobin 11.3 magnesium 1.5 potassium 4.1 sodium 138 Upper GI shows no evidence of leak or significant obstruction status post recent gastric sleeve surgery PHYSICAL EXAM: VITAL SIGNS: Reviewed GENERAL: Well-developed in no acute distress. HEENT: No sclera icterus. Extraocular movements grossly intact. Moist buccal mucosa. Head is atraumatic, normocephalic. Hears conversational speech. No nasal drainage. NECK: Supple without lymphadenopathy. CHEST: Non-labored respirations and equal bilateral excursions. CARDIOVASCULAR: Palpable 2+ radial pulses. ABDOMEN: Soft. Nondistended. Nontender. MUSCULOSKELETAL: No clubbing or cyanosis. NEUROLOGIC: No focal or lateralizing signs. Cranial nerves II through XII grossly intact. PSYCH: Appropriate affect. Alert and oriented to person, place and time. SKIN: Well perfused. Good skin turgor. ASSESSMENT: 1. Morbid obesity 2. Hypovolemic hyponatremia resolved 3. Hypomagnesemia PLAN: -Replace magnesium -Continue bariatric clear diet -Encourage patient to ambulate and use incentive spirometer -DVT prophylaxis Lovenox -Anticipate discharge possibly tomorrow Physician Flat Sheet Maker note has been reviewed by physician. Signing provider agrees with the documented findings, assessment, and plan of care. Objective - Vital Signs Vital signs: Vital Signs Temp 98.6 F 04/28/20 07:16 Pulse 72 04/28/20 11:43 Resp 17 04/28/20 07:16 BP 154/77 04/28/20 07:16 Pulse Ox 95 04/28/20 11:36 Intake & Output 04/27/20 04/28/20 04/28/20 18:59 06:59 18:59 Intake Total 3840 400 Output Total 30 575 Balance 3810 -575 400 Weight 174.6 kg Intake: IV 3840 Sodium Chloride 0.9% 1, 1040 000 ml @ 130 mls/hr IV . Q7H42M [facility] Rx#:[id number] Oral 400 Output: Urine 575 Estimated Blood Loss 30 Other: Voiding Method Toilet Toilet # Voids 1 - Labs CBC & Chem 7: 04/28/20 05:56 04/28/20 05:56 Labs: Abnormal Lab Results - Last 24 Hours (Table) 04/28/20 04/28/20 Range/Units 05:56 05:56 RBC 4.11 L (4.30-5.90) m/uL Hgb 11.3 L (13.0-17.5) gm/dL Hct 35.0 L (39.0-53.0) % Calcium 8.3 L (8.7-10.3) mg/dL AST 38 H (14-35) U/L Alkaline Phosphatase 39 L (41-126) U/L Total Protein 5.1 L (6.2-8.2) g/dL Albumin 3.40 L (3.80-4.90) g/dL
[2020-04-28] MEDS: MAGNESIUM SULFATE-D5W PMX 1 GM in DEXTROSE/WATER 1 100ML.BAG IVPB SCH ×2 (15:48→17:10)
[2020-04-29] MEDS: ONDANSETRON 4 MG/2 ML VIAL IVP SCH ×3 (00:18→12:35)
[2020-04-29] MEDS: HYOSCYAMINE ORAL DROPS 1.875 MG/15 ML BOTTLE PO SCH ×3 (00:18→12:35)
[2020-04-29] MEDS: SIMETHICONE 40 MG/0.6 ML DROPS 2,000 MG/30 ML BOTTLE PO SCH ×3 (00:18→12:35)
[2020-04-29] MEDS ORDERED: ACETAMINOPHEN TAB 325 MG TAB PO PRN (01:17)
[2020-04-29 07:15] LABS: Glucose,Whole Blood 83 mg/dL (75-99)
[2020-04-29 07:42] LABS: Basophils % (A) 1 %; Eosinophils # (A) 0.1 k/uL (0-0.7); Eosinophils % (A) 1 %; HCT 34.9 % (39.0-53.0); HGB 11.7 gm/dL (13.0-17.5); Lymphocytes % (A) 13 %; MCH 28.2 pg (25.0-35.0); MCHC 33.4 g/dL (31.0-37.0); MCV 84.2 fL (80.0-100.0); Mean Platelet Volume 6.9; Monocytes # (A) 0.5 k/uL (0-1.0); Monocytes % (A) 6 %; Neutrophils # (A) 6.1 k/uL (1.3-7.7); Neutrophils % (A) 78 %; Platelet Count 266 k/uL (150-450); RBC 4.14 m/uL (4.30-5.90); RDW 13.5 % (11.5-15.5); WBC 7.8 k/uL (3.8-10.6)
[2020-04-29] MEDS ORDERED: bisacodyL 5 MG TABLET.DR PO PRN (08:00)
[2020-04-29] MEDS: ALBUTEROL NEBULIZED 2.5 MG/3 ML INHALATION SCH ×3 (08:15→15:45)
[2020-04-29] MEDS: TRIAMTERENE-HCTZ 37.5-25MG 1 EACH CAP PO SCH (08:23)
[2020-04-29] MEDS: ENOXAPARIN 40 MG/0.4 ML SYRINGE SQ SCH (08:23)
[2020-04-29] MEDS: LOSARTAN 50 MG TAB PO SCH (08:23)
[2020-04-29] MEDS: PANTOPRAZOLE 40 MG/10 ML VIAL IV SCH (08:23)
[2020-04-29] MEDS: amLODIPine 5 MG TAB PO SCH (08:23)
[2020-04-29 11:45] LABS: Glucose,Whole Blood 80 mg/dL (75-99)
[2020-04-29] MEDS ORDERED: ACETAMINOPHEN ORAL SUSP (PEDS) 3,840 MG/120 ML BOTTLE PO PRN (11:58)
--- NOTE | 2020-04-29 13:48 | P.PN ---
Subjective Progress Note Date: 04/29/20 Patient was seen and examined. No acute events overnight. Tolerating clear liquid diet well. Passing gas. Urinating freely. Has no complaints. Objective - Vital Signs Vital signs: Vital Signs Temp 98.2 F 04/29/20 07:00 Pulse 72 04/29/20 11:20 Resp 18 04/29/20 07:00 BP 145/65 04/29/20 07:00 Pulse Ox 92 L 04/29/20 08:15 Intake & Output 04/28/20 04/29/20 04/29/20 18:59 06:59 18:59 Intake Total 400 Balance 400 Weight 174.6 kg Intake: Oral 400 Other: Voiding Method Toilet # Voids 2 2 - Exam General: [non toxic], [no distress], [appears at stated age], morbidly obese Derm: [warm], [dry] Head: [atraumatic], [normocephalic], [symmetric] Eyes: [EOMI], [no lid lag], [anicteric sclera] Mouth: [no lip lesion], [mucus membranes moist] Cardiovascular: [S1S2 reg], [no murmur], [positive posterior tibial pulse bila teral], Lungs: [CTA bilateral], [no rhonchi, no rales] , [no accessory muscle use] Abdominal: [soft], [ nontender to palpation], [no guarding], [no appreciable organomegaly] Ext: [no gross muscle atrophy], [no edema], [no contractures] Neuro: [no focal neuro deficits] Psych: [Alert], [oriented], [appropriate affect] - Labs CBC & Chem 7: 04/29/20 07:00 04/28/20 05:56 Labs: Abnormal Lab Results - Last 24 Hours (Table) 04/29/20 Range/Units 07:00 RBC 4.14 L (4.30-5.90) m/uL Hgb 11.7 L (13.0-17.5) gm/dL Hct 34.9 L (39.0-53.0) % Assessment and Plan Assessment: Elevated liver enzymes Hypertension GERD Morbid obesity with BMI 56.8 Resolved: Hyponatremia His elevated liver enzymes is likely related to fatty liver and his LFT will be repeated tomorrow morning. Patient will be started on amlodipine by mouth. Triamterene and hydrochlorothia zide has been restarted. Losartan restarted. His vital signs are currently stable and will be watched, medications adjusted if necessary. Continue Protonix for GERD. General surgery on board for sleeve gastrectomy. He is on Lovenox for DVT prophylaxis. His hyponatremia has improved. Patient is medically cleared for discharge. Thank you for this consultation. We will continue to follow this patient through his clinical course. Please call sound physicians with any additional questions or concerns.
--- NOTE | 2020-04-29 15:18 | P.DS ---
Providers Date of admission: 04/25/20 08:02 Expected date of discharge: 04/29/20 Attending physician: Agnieszka Jennings Consults: 04/25/20 10:05 Consult Physician Urgent Consulting Provider: Cyndie Arevalo Consult Reason/Comments: Hyponatremia, symptomatic, medical management Do you want consulting provider notified?: Yes Primary care physician: Stated None Hospital Course: Discharge diagnosis 1. Morbid obesity status post Robotic assisted daVinci Xi laparoscopic sleeve gastrectomy and Intraoperative esophagogastroduodenoscopy 2. Hypovolemic hyponatremia resolved 3. Hypomagnesemia Hospital course Justo Davis is a 59-year-old male who comes with lifelong morbid obesity. He initially scheduled for sleeve gastrectomy on 04/25/[address] Jennings. Surgery had to be held due to hyponatremia. Hyponatremia resolved after being treated with IV fluids, restarting diet and holding patient's diuretics. Patient was then able to proceed with Robotic assisted daVinci Xi laparoscopic sleeve gastrectomy and Intraoperative esophagogastroduodenoscopy on 04/27/2020. Patient tolerated surgery well. He is tolerating diet. Pain is controlled. He is up and ambulating. He is afebrile. He is stable for discharge. Physician Brooch Maker Novelty note has been reviewed by physician. Signing provider agrees with the documented findings, assessment, and plan of care. Patient Condition at Discharge: Stable Plan - Discharge Summary New Discharge Prescriptions: New Acetaminophen Oral Susp (Peds) [Tylenol Oral Susp For Peds (Grape)] 1,000 mg PO Q6H PRN #360 ml PRN Reason: Pain bisacodyL [Dulcolax] 5 mg PO DAILY PRN #10 tablet.dr PRN Reason: Constipation Simethicone 40 mg/0.6 ml Drops [Mylicon Drops] 40 mg PO PCHS PRN #30 ml PRN Reason: Gas Omeprazole [PriLOSEC] 40 mg PO DAILY #30 capsule. Ondansetron Odt [Zofran Odt] 4 mg PO Q8HR PRN #9 tab PRN Reason: Nausea Continue Triamterene-Hctz 37.5-25Mg [Dyazide 37.5-25 Capsule] 1 cap PO DAILY Losartan Potassium [Cozaar] 100 mg PO DAILY Discontinued Valerian Root 300 mg PO HS Keli 500 mg PO DAILY Cider Vinegar [Apple Cider Vinegar] 300 mg PO DAILY Multivit-Min/FA/Lycopen/Lutein [Centrum Silver Tablet] 1 each PO DAILY Aspirin [Adult Low Dose Aspirin EC] 81 mg PO DAILY Turmeric Root Extract [Turmeric] 1,000 mg PO BID Omeprazole [PriLOSEC] 40 mg PO DAILY Ferrous Sulfate [Iron (65 MG Elemental)] 325 mg PO DAILY Cetirizine HCl [Zyrtec] 10 mg PO DAILY PRN PRN Reason: alleriges Naproxen 500 mg PO BID Discharge Medication List Triamterene-Hctz 37.5-25Mg [Dyazide 37.5-25 Capsule] 1 cap PO DAILY 03/11/19 [History] Losartan Potassium [Cozaar] 100 mg PO DAILY 05/06/19 [History] Acetaminophen Oral Susp (Peds) [Tylenol Oral Susp For Peds (Grape)] 1,000 mg PO Q6H PRN #360 ml 04/29/20 [Rx] Omeprazole [PriLOSEC] 40 mg PO DAILY #30 capsule. 04/29/20 [Rx] Ondansetron Odt [Zofran Odt] 4 mg PO Q8HR PRN #9 tab 04/29/20 [Rx] Simethicone 40 mg/0.6 ml Drops [Mylicon Drops] 40 mg PO PCHS PRN #30 ml 04/29/20 [Rx] bisacodyL [Dulcolax] 5 mg PO DAILY PRN #10 tablet. 04/29/20 [Rx] [place] [facility]Ref[place] Activity/Diet/Wound Care/Special Instructions: No lifting over 10 pounds You may shower. No soaking or tub baths until May 13 Very light activity until you are reevaluated at your follow up appointment with your surgeon Wear abdominal binder for comfort Crush or cut all pills to a size smaller than a tic-tac No straws or carbonated beverages Discharge Disposition: HOME SELF-CARE
[2020-04-29] MEDS: MAGNESIUM SULFATE-D5W PMX 1 GM in DEXTROSE/WATER 1 100ML.BAG IVPB SCH ×2 (15:26→16:32)
[2020-04-29 15:40] VITALS: BP 148/73; RESP 19; TEMP 98.6
[2020-04-29 15:57] VITALS: PULSE 72
[2020-04-29 16:47] LABS: Glucose,Whole Blood 106 mg/dL (75-99)
== END 2020-04-29 18:40 | disposition home or self-care (01) | DRG 620 ==
LOC: 2ORMAIN 08:02 → 4SSUR 10:05
PROVIDERS: ADMIT Surgery Plastic and Reconstructive Surgery; ATTEND Surgery Plastic and Reconstructive Surgery
PROC: 8E0W4CZ Robotic Assisted Procedure of Trunk Region, Percutaneous Endoscopic Approach (ICD-10-PCS; principal; 2020-04-27 11:45)
PROC: 0DJ08ZZ Inspection of Upper Intestinal Tract, Via Natural or Artificial Opening Endoscopic (ICD-10-PCS; principal; 2020-04-27 11:45)
PROC: 0DB64Z3 Excision of Stomach, Percutaneous Endoscopic Approach, Vertical (ICD-10-PCS; principal; 2020-04-27 11:45)
DX: E66.01 Morbid (severe) obesity due to excess calories (principal); E87.1 Hypo-osmolality and hyponatremia; J98.11 Atelectasis; F32.9 Major depressive disorder, single episode, unspecified; H81.09 Meniere's disease, unspecified ear; I11.9 Hypertensive heart disease without heart failure; K21.9 Gastro-esophageal reflux disease without esophagitis; M17.0 Bilateral primary osteoarthritis of knee; M47.9 Spondylosis, unspecified; D50.9 Iron deficiency anemia, unspecified; E55.9 Vitamin D deficiency, unspecified; K29.50 Unspecified chronic gastritis without bleeding; M10.9 Gout, unspecified; E87.8 Other disorders of electrolyte and fluid balance, not elsewhere classified; E86.1 Hypovolemia; T50.2X5A Adverse effect of carbonic-anhydrase inhibitors, benzothiadiazides and other diuretics, initial encounter; E83.42 Hypomagnesemia; Z79.01 Long term (current) use of anticoagulants; Z68.44 Body mass index [BMI] 60.0-69.9, adult; Z79.1 Long term (current) use of non-steroidal anti-inflammatories (NSAID); Z79.82 Long term (current) use of aspirin; Z79.899 Other long term (current) drug therapy; Z98.890 Other specified postprocedural states; Z88.5 Allergy status to narcotic agent; Z87.891 Personal history of nicotine dependence; Z83.49 Family history of other endocrine, nutritional and metabolic diseases; Z86.718 Personal history of other venous thrombosis and embolism; Z88.8 Allergy status to other drugs, medicaments and biological substances
CPT/HCPCS: 74240; 80053; 83735; 83930; 83935; 84100; 84295; 84300; 84443; 85025; 86850; 86900; 86901; 88307; 94640; 94760; 94762

== ENCOUNTER → 2020-05-02 | Outpatient (CLI) | payer BC ==
[2020-05-02 12:44] VITALS: BP 175/87; PULSE 61; RESP 16; TEMP 97.9
[2020-05-02] MEDS: SODIUM CHLORIDE 0.9% 1,000 ML IV SCH ×2 (12:50→13:30)
[2020-05-02 12:53] LABS: Basophils # (A) 0.1 k/uL (0-0.2); Basophils % (A) 1 %; Eosinophils # (A) 0.2 k/uL (0-0.7); Eosinophils % (A) 4 %; HGB 13.4 gm/dL (13.0-17.5); Lymphocytes # (A) 0.9 k/uL (1.0-4.8); Lymphocytes % (A) 17 %; MCH 26.9 pg (25.0-35.0); MCHC 31.9 g/dL (31.0-37.0); MCV 84.4 fL (80.0-100.0); Mean Platelet Volume 6.4; Monocytes # (A) 0.4 k/uL (0-1.0); Monocytes % (A) 8 %; Neutrophils # (A) 3.7 k/uL (1.3-7.7); Neutrophils % (A) 69 %; Platelet Count 338 k/uL (150-450); RBC 4.97 m/uL (4.30-5.90); RDW 13.2 % (11.5-15.5); WBC 5.3 k/uL (3.8-10.6)
[2020-05-02 13:05] LABS: African American GFR (CKD) >90 (>60 ml/min/1.73 sqM); Anion Gap 5 mmol/L; Blood Urea Nitrogen 12 mg/dL (9-20); Calcium 9.1 mg/dL (8.4-10.2); Carbon Dioxide 32 mmol/L (22-30); Chloride 98 mmol/L (98-107); Glucose 92 mg/dL (74-99); Non-African American GFR(CKD) >90 (>60 ml/min/1.73 sqM); Sodium 135 mmol/L (137-145)
== END | disposition home or self-care (01) ==
LOC: PROCWHC3 12:18
PROVIDERS: ATTEND Surgery Plastic and Reconstructive Surgery
DX: E86.0 Dehydration (principal)
CPT/HCPCS: 36415; 80048; 85025; 96360; 96361

== ENCOUNTER 2020-05-25 16:12 | Outpatient (CLI) | payer BC, OTHER ==
[2020-05-25] MEDS ORDERED: SODIUM CHLORIDE 0.9% 1,000 ML IV ONE (16:25)
[2020-05-25 16:41] VITALS: BP 102/68; PULSE 79; RESP 20; TEMP 97.9
[2020-05-25 16:53] LABS: Calcium 9.5 mg/dL (8.4-10.2); Potassium 3.7 mmol/L (3.5-5.1)
== END 2020-05-25 18:10 | disposition other institution (70) ==
LOC: PEDOP 16:12
PROVIDERS: ATTEND Surgery Plastic and Reconstructive Surgery
DX: E86.0 Dehydration (principal)
CPT/HCPCS: 80048; 96360

== ENCOUNTER 2020-05-25 17:31 | Inpatient (IN) | payer BC, OTHER ==
--- NOTE | 2020-05-25 18:40 | P.GSHP ---
History of Present Illness H&P Date: 05/25/20 CHIEF COMPLAINT: Acute renal failure HISTORY OF PRESENT ILLNESS: Justo Davis is a 59-year-old male with comorbidities of hypertensive heart disease, morbid obesity, bilateral lower extremity venous stasis disease and recent sleeve gastrectomy 04/27/2020. He is 1 month out. He reports developing generalized weakness including nausea and epigastric abdominal pain. On his previous hospitalization, he had pre-existing history of hyponatremia. He was doing well until one week ago when he reports worsening weakness and inability to tolerate orals. He continued to take his diuretic including antihypertensive medications. He came to the bariatric center for his 1 month follow-up. With his concerns, additional lab work was obtained. He was being given IV fluids for hydration. Blood work came back consistent with hyponatremia including new acute renal failure of 2.32 creatinine from his baseline 0.6. As a result, patient is admitted for acute renal failure. He continues to urinate however dark. At height of 5 feet 7 inches, his ideal body weight is 158 pounds. His highest weight was 415 pounds. His highest BMI was 65.1. He comes in 347 pounds from 386, 1 month ago. He lost 38 pounds in 1 montn. His body mass index is 54.6. He is 190 pounds overweight. PAST MEDICAL HISTORY: 1. Morbid obesity due to excess calories 2. Body mass index of 65.1, initial 3. Osteoarthritis of the knees. 4. Osteoarthritis of the lower back. 5. Hypertensive heart disease. 6. Gastroesophageal reflux disease 7. DVT legs 8. Meniere's disease 9. Depressive disorder PAST SURGICAL HISTORY: 1. Varicose vein stripping 2. Umbilical hernia repair 3. Stents bilateral common iliac vein 4. Status post sleeve gastrectomy HOME MEDICATIONS: Home Medications Medication Instructions Recorded Confirmed Anxiety/Stress [employer] Brand 1 tab PO HS 03/11/19 03/11/19 [place] Hemp Oil 20 drop PO BID 03/11/19 03/11/19 Aspirin [Adult Low Dose Aspirin EC] 81 mg PO DAILY 03/11/19 03/11/19 Cider Vinegar [Apple Cider Vinegar] 300 mg PO DAILY 03/11/19 03/11/19 Keli 500 mg PO BID 03/11/19 03/11/19 Glucosamine Sulfate 1,500 mg PO DAILY 03/11/19 03/11/19 Meloxicam [Mobic] 15 mg PO DAILY 03/11/19 03/11/19 Multivit-Min/FA/Lycopen/Lutein 1 each PO DAILY 03/11/19 03/11/19 [Centrum Silver Tablet] Omeprazole [PriLOSEC] 40 mg PO DAILY 03/11/19 03/11/19 Triamterene-Hctz 37.5-25Mg 1 cap PO DAILY 03/11/19 03/11/19 [Dyazide 37.5-25 Capsule] Turmeric Root Extract [Turmeric] 1,000 mg PO BID 03/11/19 03/11/19 Valerian Root 300 mg PO HS 03/11/19 03/11/19 ALLERGIES: Allergies Allergy/AdvReac Type Severity Reaction Status Date / Time morphine Allergy Itching Verified 03/11/19 16:05 SOCIAL HISTORY: Past tobacco use. FAMILY HISTORY: No family history of ulcerative colitis disease or Crohn's disease. Family history of morbid obesity. No lupus in the family. No reports of stomach or esophageal cancer. REVIEW OF ORGAN SYSTEMS: CONSTITUTIONAL: At height of 5 feet 7 inches, his ideal body weight is 158 pounds. His highest weight was 415 pounds. His highest BMI was 65.1. HEENT: Denies any active troubles with vision or hearing. ENDOCRINE: No diabetes. No hypothyroidism. CARDIOVASCULAR: No past reports of palpitations or heart attacks or chest pain. RESPIRATORY: Denies daytime somnolence. No asthma. GASTROINTESTINAL: Denies any bright red blood per rectum. No diarrhea. No constipation. MUSCULOSKELETAL: Has lower back pain and joint pain. Has osteoarthritis of the knees. History of bilateral lower extremity edema. NEURO: No headaches. No seizure disorders. PSYCH: Has depression. No suicidal ideation. RHEUMATOLOGIC: No lupus. No rheumatoid arthritis. HEMATOLOGIC: Denies any abnormal bleeding or bruising. Personal history of DVTs. SKIN: No rash. No skin cancer. GENITOURINARY: Has decreased urine output. No blood in urine. PHYSICAL EXAM: VITAL SIGNS: Height 5 foot 7 inches, weight 348 pounds. BMI 54.6 GENERAL: Well-developed in no acute distress. HEENT: No scleral icterus. Extraocular movements grossly intact. Hears conversational speech. No nasal drainage. NECK: Supple without lymphadenopathy. CHEST: Nonlabored respirations with equal bilateral excursions. CARDIOVASCULAR: Regular rate and regular rhythm. Distal 2+ pulses. ABDOMEN: Obese, soft, nontender, nondistended. MUSCULOSKELETAL: No clubbing, cyanosis. NEURO: No focal or lateralizing signs. Cranial nerves 2 through 12 grossly withi n normal limits. PSYCH: Appropriate affect. Alert and oriented to person, place and time. SKIN: Good skin turgor. Well perfused. LABS: Creatinine elevated from 0.62 to 2.32. Sodium low 132 ASSESSMENT: 1. Morbid obesity due to excess calories 2. Body mass index of 65.1 to 54.6 3. Osteoarthritis of the knees. 4. Osteoarthritis of the lower back. 5. Hypertensive heart disease. 6. Gastroesophageal reflux disease 7. DVT legs 8. Meniere's disease 9. Depressive disorder 10. Iron deficiency anemia 11. Vitamin D deficiency 12. Chronic gastritis 13. Acute renal failure 14. Hyponatremia 15. Dehydration 16. Epigastric abdominal pain PLAN: 1. Recommend full inpatient admission for acute renal failure 2. IV fluid hydration for severe dehydration due to diuretics. 3. Recommend upper endoscopy for epigastric abdominal pain including risk for gastric ulcers 4. Discontinue hypertensive medications included diuretic and Cozaar 5. Repeat CBC and BMP 6. Will need nephrology consultation Past Medical History Past Medical History: GERD/Reflux, Hypertension, Osteoarthritis (OA) Additional Past Medical History / Comment(s): Meniere's disease (Takes Dyazide for this condition), LEFT LEG DVT; Left shoulder pain "bone on bone", varicose veins, "irritation in stomach", hx gout, LEFT LEG GANGRENE History of Any Multi-Drug Resistant Organisms: None Reported Past Surgical History: Bariatric Surgery, Hernia Repair Additional Past Surgical History / Comment(s): Left leg varicose vein stripping and ablation and sclerotherapy (3 times), Right leg vein stripping and sclerotherapy, umbilical hernia repair with mesh, stents placed in bilateral exteriror iliac veins and common iliac veins (stents were placed through incisions on back), GASTRIC BYPASS SLEEVE. Past Anesthesia/Blood Transfusion Reactions: No Reported Reaction Additional Past Anesthesia/Blood Transfusion Reaction / Comment(s): No history of blood transfusions to date Past Psychological History: Depression Additional Psychological History / Comment(s): 03/11/19: Pt states he takes herbal supplements (had been given an antidepressment but it made him deathly sick, was given another med to try but was fearful and so has been doing well on his herbal supplements) Smoking Status: Former smoker Past Alcohol Use History: Occasional Additional Past Alcohol Use History / Comment(s): STARTED SMOKING AT AGE 17 QUIT ON AND OFF LAST QUIT AT AGE 43 SMOKED 3/4 - 1PPD Past Drug Use History: None Reported Additional Drug Use History / Comment(s): uses hemp oil - Past Family History Mother Family Medical History: No Reported History Additional Family Medical History / Comment(s): . Father Family Medical History: Osteoarthritis (OA) Additional Family Medical History / Comment(s): at age 78 Medications and Allergies Home Medications Medication Instructions Recorded Confirmed Type Ondansetron Odt [Zofran ODT] 4 mg PO Q8HR PRN #9 tab 04/29/20 05/26/20 Rx Omeprazole 40 mg PO HS 05/25/20 05/26/20 History Acetaminophen Tab [Tylenol Tab] 1,000 mg PO Q6HR PRN #30 tablet 05/27/20 Rx Sucralfate [Carafate] 1 gm PO BID #30 tablet 05/27/20 Rx amLODIPine [Norvasc] 10 mg PO DAILY #30 tablet 05/27/20 Rx polyethylene glycoL 3350 [Miralax] 17 gm PO BID #60 packet 05/27/20 Rx Allergies Allergy/AdvReac Type Severity Reaction Status Date / Time morphine Allergy Itching/ Verified 05/25/20 19:02 nortriptyline Allergy NAUSEA , Verified 05/25/20 19:02 HEADACHE Results - Labs 05/26/20 07:25 05/27/20 07:33 Assessment and Plan (1) Acute kidney injury Status: Acute Code(s): N17.9 - ACUTE KIDNEY FAILURE, UNSPECIFIED SNOMED Code(s): 45698068 (2) Adult BMI 50.0-59.9 kg/sq m Status: Acute Code(s): Z68.43 - BODY MASS INDEX [BMI] 50.0-59.9, ADULT SNOMED Code(s): 080005531 (3) Hypertensive heart disease Status: Acute Code(s): I11.9 - HYPERTENSIVE HEART DISEASE WITHOUT HEART F AILURE SNOMED Code(s): 12065381 (4) Hyponatremia Status: Acute Code(s): E87.1 - HYPO-OSMOLALITY AND HYPONATREMIA SNOMED Code(s): 68798909 (5) Morbid obesity due to excess calories Status: Acute Code(s): E66.01 - MORBID (SEVERE) OBESITY DUE TO EXCESS CALORIES SNOMED Code(s): 049207587
[2020-05-25] MEDS ORDERED: NALOXONE 0.4 MG/ML 1 ML VIAL IV PRN (18:42)
[2020-05-25] MEDS ORDERED: ACETAMINOPHEN TAB 325 MG TAB PO PRN (18:42)
[2020-05-25] MEDS ORDERED: SODIUM CHLORIDE 0.9% 2,000 ML IV ONE (18:46)
[2020-05-25] MEDS ORDERED: ONDANSETRON 4 MG/2 ML VIAL IVP PRN (18:46)
[2020-05-25] MEDS: SODIUM CHLORIDE 0.9% 1,000 ML IV SCH (22:12)
[2020-05-26] MEDS: SODIUM CHLORIDE 0.9% 1,000 ML IV SCH ×3 (05:33→20:15)
[2020-05-26 07:44] LABS: Basophils # (A) 0.1 k/uL (0-0.2); Basophils % (A) 1 %; Eosinophils # (A) 0.1 k/uL (0-0.7); Eosinophils % (A) 3 %; HGB 13.7 gm/dL (13.0-17.5); Lymphocytes # (A) 1.3 k/uL (1.0-4.8); Lymphocytes % (A) 26 %; MCH 27.5 pg (25.0-35.0); MCHC 31.8 g/dL (31.0-37.0); MCV 86.5 fL (80.0-100.0); Monocytes # (A) 0.5 k/uL (0-1.0); Monocytes % (A) 10 %; Neutrophils # (A) 2.9 k/uL (1.3-7.7); Neutrophils % (A) 58 %; Platelet Count 219 k/uL (150-450); RBC 4.98 m/uL (4.30-5.90); RDW 13.3 % (11.5-15.5)
[2020-05-26] MEDS: ENOXAPARIN 40 MG/0.4 ML SYRINGE SQ SCH (07:47)
--- NOTE | 2020-05-26 10:00 | P.NPCON ---
History of Present Illness - Reason for Consult acute renal failure - History of Present Illness Reason for consultation: Acute kidney injury History of present illness: Patient is a 59-year-old male seen in renal consultation for acute kidney injury. Patient's creatinine was 2.3 on admission yesterday. Labs from today are pending. Patient presented to the hospital with generalized weakness as well as presyncopal symptoms. Patient states he's been dizzy and lightheaded. His oral intake the last few days has been poor. He denies vomiting or diarrhea. Denies use of nonsteroidals. No history of diabetes. No hematuria or dysuria. Patient states he had a cousin on hemodialysis but is unsure of the etiology of his kidney disease. He has history of gastric sleeve. No edema. He was taking Dyazide as well as losartan at home which are both currently held. He is receiving IV fluids. She states his urine output has improved overnight. No fever or chills. No cough. No other complaints. Vital signs are stable. General: The patient appeared well nourished and normally developed. HEENT: Head exam is unremarkable. Neck is without jugular venous distension. LUNGS: Lungs are clear to auscultation and percussion. Breath sounds decreased. HEART: Rate and Rhythm are regular. ABDOMEN: Soft, obese. EXTREMITITES: No clubbing, cyanosis, or edema. Past Medical History Past Medical History: GERD/Reflux, Hypertension, Osteoarthritis (OA) Additional Past Medical History / Comment(s): Meniere's disease (Takes Dyazide for this condition), LEFT LEG DVT; Left shoulder pain "bone on bone", varicose veins, "irritation in stomach", hx gout, LEFT LEG GANGRENE History of Any Multi-Drug Resistant Organisms: None Reported Past Surgical History: Bariatric Surgery, Hernia Repair Additional Past Surgical History / Comment(s): Left leg varicose vein stripping and ablation and sclerotherapy (3 times), Right leg vein stripping and sclerotherapy, umbilical hernia repair with mesh, stents placed in bilateral exteriror iliac veins and common iliac veins (stents were placed through incisions on back), GASTRIC BYPASS SLEEVE. Past Anesthesia/Blood Transfusion Reactions: No Reported Reaction Additional Past Anesthesia/Blood Transfusion Reaction / Comment(s): No history of blood transfusions to date Past Psychological History: Depression Additional Psychological History / Comment(s): 03/11/19: Pt states he takes herbal supplements (had been given an antidepressment but it made him deathly sick, was given another med to try but was fearful and so has been doing well on his herbal supplements) Smoking Status: Former smoker Past Alcohol Use History: Occasional Additional Past Alcohol Use History / Comment(s): STARTED SMOKING AT AGE 17 QUIT ON AND OFF LAST QUIT AT AGE 43 SMOKED 3/4 - 1PPD Past Drug Use History: None Reported Additional Drug Use History / Comment(s): uses hemp oil - Past Family History Mother Family Medical History: No Reported History Additional Family Medical History / Comment(s): . Father Family Medical History: Osteoarthritis (OA) Additional Family Medical History / Comment(s): at age 78 Medications and Allergies Home Medications Medication Instructions Recorded Confirmed Type Triamterene-Hctz 37.5-25Mg 1 cap PO DAILY 03/11/19 05/25/20 History [Dyazide 37.5-25 Capsule] Losartan Potassium [Cozaar] 100 mg PO DAILY 05/06/19 05/25/20 History Ondansetron Odt [Zofran Odt] 4 mg PO Q8HR PRN #9 tab 04/29/20 05/25/20 Rx Omeprazole 40 mg PO HS 05/25/20 05/25/20 History Allergies Allergy/AdvReac Type Severity Reaction Status Date / Time morphine Allergy Itching/ Verified 05/25/20 19:02 nortriptyline Allergy NAUSEA , Verified 05/25/20 19:02 HEADACHE Physical Exam Vitals: Vital Signs Temp Pulse Resp BP Pulse Ox 05/26/20 07:44 97.8 F 56 L 17 130/81 98 05/26/20 01:00 98.1 F 66 20 171/94 100 05/26/20 00:00 18 05/25/20 20:00 18 05/25/20 19:30 98.3 F 79 20 159/96 100 Intake and Output 05/25/20 05/26/20 05/26/20 22:59 06:59 14:59 Intake Total 1999 1040 Balance 1999 1040 Intake: Intake, IV Titration 1999 1040 Amount Sodium Chloride 0.9% 1, 0 000 ml @ 130 mls/hr IV . Q7H42M [facility] Rx#:[id number] Sodium Chloride 0.9% 2, 1999 000 ml @ 999 mls/hr IV . Q2H1M [facility] Rx#:[id number] Other: Weight 158.18 kg Results - Lab Results 05/26/20 07:25 Assessment and Plan Plan: Assessment: 1. Acute kidney injury mostly prerenal secondary to hypovolemia from diuretics and poor intake. Creatinine 2.3 on admission. Baseline creatinine near 1. 2. Benign hypertension. Stable. 3. History of gastric sleeve. 4. Hypovolemic hyponatremia. Plan: Maintain IV fluids. Follow-up morning labs. Check urinalysis. Avoid nephrotoxins. Continue to monitor renal function and urine output. Thank you for the consultation. I will continue to follow the patient with you during his hospital stay.
[2020-05-26 11:47] LABS: African American GFR (CKD) 50.8 (60.0-200.0); Albumin 3.9 g/dL (3.80-4.90); Albumin/Globulin Ratio 1.44 (1.60-3.17); Anion Gap 11.6 mmol/L (4.00-12.00); BUN/Creat Ratio 32.35 Ratio (12.00-20.00); Calcium 9.1 mg/dL (8.7-10.3); Carbon Dioxide 26.4 mmol/L (21.6-31.8); Globulin 2.7 g/dL (1.6-3.3); Non-African American GFR(CKD) 43.8 (60.0-200.0); Potassium 4.1 mmol/L (3.5-5.5); Total Bilirubin 0.6 mg/dL (0.2-1.2); Total Protein 6.6 g/dL (6.2-8.2)
[2020-05-26] MEDS ORDERED: IV FLUID CONTINUATION 900 ML IV ONE (11:59)
[2020-05-26] MEDS ORDERED: KETAMINE 10 MG/ML 20 ML VIAL ONE (12:04)
[2020-05-26] MEDS ORDERED: PROPOFOL 10 MG/ML 20 ML VIAL IV ONE (12:04)
[2020-05-26] MEDS ORDERED: LIDOCAINE 1% INJ 10MG/ML (20 ML MDV) ONE (12:04)
--- NOTE | 2020-05-26 12:23 | P.PCN ---
Date of Procedure: 05/26/20 Description of Procedure: PREOPERATIVE DIAGNOSIS: Gastric ulcers Status post sleeve gastrectomy. Gastroesophageal reflux disease. Epigastric abdominal pain. POSTOPERATIVE DIAGNOSIS: Status post sleeve gastrectomy. Gastroesophageal reflux disease. Epigastric abdominal pain. Diaphragmatic hiatal hernia without obstruction. Chronic superficial gastritis. OPERATION: Esophagogastroduodenoscopy with cold forceps biopsies along the antrum. SURGEON: Agnieszak Jennings MD ANESTHESIA: MAC. INDICATIONS: The patient is a 59-year-old male who presents with a history of sleeve gastrectomy with abdominal pain. Benefits and risks of the procedure were described. Informed consent was obtained. DESCRIPTION: The patient was brought into the endoscopy suite and laid in the left lateral decubitus position. An Olympus gastroscope was passed along the posterior oropharynx down to the distal esophagus where the squamocolumnar junction was at 40 cm from the incisors. The stomach was entered with a diaphragmatic hiatus found at 43 cm. Retained gastric cardia was identified. The sleeve reservoir was within normal limits. Chronic gastritis albeit mild was found along the antrum with cold biopsies obtained. The first through third portion of the duodenum was examined and unremarkable. The stomach was desufflated. The patient tolerated the procedure well. FINDINGS: No acute ulceration found along her sleeve. No corkscrewing sleeve gastrectomy. Squamocolumnar junction at 40 cm from the incisors. Diaphragmatic hiatus at 43 cm. Hiatal hernia 3 cm, fixed. LA grade A erosive esophagitis. No active duodenitis. Acute on chronic gastritis. RECOMMENDATIONS: Upper endoscopy as needed. Start Carafate Full liquid diet.
[2020-05-26 19:08] LABS: Appearance,Urine Clear (Clear); Bilirubin,Urine Negative (Negative); Blood,Urine Negative (Negative); Color,Urine Light Yellow; Glucose,Urine (UA) Negative (Negative); Ketones,Urine Negative (Negative); Leukocyte Esterase,Urine Negative (Negative); Nitrite,Urine Negative (Negative); Protein,Urine Negative (Negative); Urobilinogen,Urine <2.0 mg/dL (<2.0)
[2020-05-27] MEDS: SODIUM CHLORIDE 0.9% 1,000 ML IV SCH (02:49)
[2020-05-27 07:32] VITALS: BP 166/83; PULSE 62; RESP 18; TEMP 97.6
[2020-05-27] MEDS: ENOXAPARIN 40 MG/0.4 ML SYRINGE SQ SCH (08:14)
--- NOTE | 2020-05-27 09:41 | P.PN ---
Subjective Patient is seen in follow-up for acute kidney injury. Renal function improving with IV fluids. Oral intake good. No dizziness or syncopal episodes. No vomiting or diarrhea. Vital signs are stable. General: The patient appeared well nourished and normally developed. HEENT: Head exam is unremarkable. Neck is without jugular venous distension. LUNGS: Lungs are clear to auscultation and percussion. Breath sounds decreased. HEART: Rate and Rhythm are regular. ABDOMEN: Soft, nontender. Obese. EXTREMITITES: No clubbing, cyanosis, or edema. Objective - Vital Signs Vital signs: Vital Signs Temp 97.6 F 05/27/20 07:30 Pulse 62 05/27/20 07:30 Resp 18 05/27/20 08:48 BP 166/83 05/27/20 07:30 Pulse Ox 96 05/27/20 07:30 Intake & Output 05/26/20 05/27/20 05/27/20 18:59 06:59 18:59 Intake Total 100 2280 Balance 100 2280 Intake: IV 100 Intake, IV Titration 2080 Amount Sodium Chloride 0.9% 1, 2080 000 ml @ 130 mls/hr IV . Q7H42M [facility] Rx#:[id number] Oral 200 Other: Voiding Method Toilet Toilet Toilet # Voids 3 1 - Labs CBC & Chem 7: 05/26/20 07:25 05/26/20 07:25 Labs: Abnormal Lab Results - Last 24 Hours (Table) 05/26/20 Range/Units 07:25 BUN 55.0 H (9.0-27.0) mg/dL Creatinine 1.7 H (0.6-1.5) mg/dL Est GFR (CKD-EPI)AfAm 50.8 L (60.0-200.0) Est GFR (CKD-EPI)NonAf 43.8 L (60.0-200.0) BUN/Creatinine Ratio 32.35 H (12.00-20.00) Ratio AST 42 H (14-35) U/L Albumin/Globulin Ratio 1.44 L (1.60-3.17) g/dL Assessment and Plan Plan: Assessment: 1. Acute kidney injury mostly prerenal secondary to hypovolemia from diuretics and poor intake. Creatinine 2.3 on admission and down to 1.7 as of yesterday. Baseline creatinine near 1. UA benign. 2. Benign hypertension. Stable. 3. History of gastric sleeve. 4. Hypovolemic hyponatremia. Improved with IV hydration. Plan: Decrease normal saline to 50 mL an hour. Avoid nephrotoxins. Continue to monitor renal function and urine output. Stable for discharge home from nephrology standpoint. Follow up outpatient in 2 weeks. Continue to stay off losartan and diuretics. Add amlodipine.
[2020-05-27] MEDS ORDERED: amLODIPine 10 MG TAB PO SCH (09:45)
[2020-05-27] MEDS ORDERED: NA PHOS,M-B/NA PHOS,DI-BA 133 ML ENEMA RECTAL ONE (10:30)
[2020-05-27 11:19] LABS: African American GFR (CKD) 70.2 (60.0-200.0); Anion Gap 10.6 mmol/L (4.00-12.00); BUN/Creat Ratio 26.15 Ratio (12.00-20.00); Calcium 9.2 mg/dL (8.7-10.3); Carbon Dioxide 28.4 mmol/L (21.6-31.8); Magnesium 1.6 mg/dL (1.5-2.4); Non-African American GFR(CKD) 60.6 (60.0-200.0); Potassium 3.6 mmol/L (3.5-5.5)
[2020-05-27] MEDS ORDERED: MAGNESIUM HYDROXIDE 2,400 MG/10 ML CUP PO ONE (12:42)
[2020-05-27] MEDS ORDERED: LACTULOSE 20 GM/30 ML CUP PO ONE (12:42)
[2020-05-27] MEDS ORDERED: DOCUSATE 100 MG CAP PO SCH (12:45)
--- NOTE | 2020-05-27 14:48 | P.DS ---
<Remedios Lewis - Last Filed: 05/27/20 14:42> Providers Expected date of discharge: 05/27/20 Hospital Course: Discharge diagnosis 1. Morbid obesity due to excess calories 2. Body mass index of 65.1 to 60.6 3. Osteoarthritis of the knees. 4. Osteoarthritis of the lower back. 5. Hypertensive heart disease. 6. Gastroesophageal reflux disease 7. DVT legs 8. Meniere's disease 9. Depressive disorder 10. Iron deficiency anemia 11. Vitamin D deficiency 12. Chronic gastritis 13. Acute kidney injury, Prerenal secondary to hypovolemia from diuretics and poor oral intake. 14. Constipation 15. Status post sleeve gastrectomy 16. GERD 17. Epigastric abdominal pain. 18. Diaphragmatic hiatal hernia without obstruction. 19. Chronic superficial gastritis. Hospital course Justo Davis is a 59-year-old male with comorbidities of hypertensive heart disease, morbid obesity, bilateral lower extremity venous stasis disease and recent sleeve gastrectomy 04/27/2020. He is 1 month out. He reports developing generalized weakness including nausea and epigastric abdominal pain. His pre vious hospitalization, he has pre-existing history of hyponatremia. He was doing well until one week ago where he reports worsening weakness and inability to tolerate orals. He continued to take his diuretic including antihypertensive medications. He came to the bariatric center for his 1 month follow-up. With his concerns, additional lab work was obtained. He was being given IV fluids for hydration. Blood work came back consistent with hyponatremia including new acute renal failure of 2.32 creatinine from his baseline 0.6. As a result, patient is admitted for acute renal failure. Patient was treated with IV fluids. His Diuretics and losartan have been discontinued. His kidney function has improved. He was followed by nephrology during this admission. Nephrology has cleared him for discharge. Patient is tolerating diet. He was able to have a bowel movement. He denies any nausea or vomiting. He's afebrile. He has been up and ambulating. He is stable for discharge. Physician Broadcast Transmitter Operator note has been reviewed by physician. Signing provider agrees with the documented findings, assessment, and plan of care. Patient Condition at Discharge: Stable Plan - Discharge Summary Discharge Rx Participant: Yes New Discharge Prescriptions: New Sucralfate [Carafate] 1 gm PO BID #30 tablet amLODIPine [Norvasc] 10 mg PO DAILY #30 tablet Acetaminophen Tab [Tylenol Tab] 1,000 mg PO Q6HR PRN #30 tablet PRN Reason: Pain polyethylene glycoL 3350 [Miralax] 17 gm PO BID #60 packet Continue Ondansetron Odt [Zofran ODT] 4 mg PO Q8HR PRN #9 tab PRN Reason: Nausea Omeprazole 40 mg PO HS Discontinued Triamterene-Hctz 37.5-25Mg [Dyazide 37.5-25 Capsule] 1 cap PO DAILY Losartan Potassium [Cozaar] 100 mg PO DAILY Discharge Medication List Ondansetron Odt [Zofran ODT] 4 mg PO Q8HR PRN #9 tab 04/29/20 [Rx] Omeprazole 40 mg PO HS 05/25/20 [History] Acetaminophen Tab [Tylenol Tab] 1,000 mg PO Q6HR PRN #30 tablet 05/27/20 [Rx] Sucralfate [Carafate] 1 gm PO BID #30 tablet 05/27/20 [Rx] amLODIPine [Norvasc] 10 mg PO DAILY #30 tablet 05/27/20 [Rx] polyethylene glycoL 3350 [Miralax] 17 gm PO BID #60 packet 05/27/20 [Rx] Follow up [facility]ment(s[facility]Ref[place] [facility] [place] [facility] [place] [facility] (Not answering. Please call to make appointment) Rahul Kwong DO [STAFF PHYSICIAN] - 2 Weeks (office not answering. Please call to make appointment) Patient Instructions/Handouts: *Surgery [facility] - (Anesthesia) Endoscopy Discharge Instructions, Acute Kidney Injury (DC), Complete Blenderized Diet (DC) Activity/Diet/Wound Care/Special Instructions: Pure diet recommended Discharge Disposition: HOME SELF-CARE <Agnieszka Jennings - Last Filed: 05/27/20 22:38> Providers Date of admission: 05/25/20 17:45 Attending physician: Agnieszka Jennings Consults: 05/25/20 19:21 Consult Physician Routine Consulting Provider: Tiffany Bingham Consult Reason/Comments: Acute renal failure Do you want consulting provider notified?: Yes Primary care physician: Reji Bernard - Discharge Diagnosis(es) (1) Acute kidney injury Status: Acute (2) Adult BMI 50.0-59.9 kg/sq m Status: Acute (3) Hypertensive heart disease Status: Acute (4) Hyponatremia Status: Acute (5) Morbid obesity due to excess calories Status: Acute (6) Constipation Status: Acute Hospital Course: HISTORY OF PRESENT ILLNESS: Justo Davis is a 59-year-old male who presented with severe acute dehydration due to his chronic diuretic use. Since admission, he had moderate IV fluid boluses to correct his dehydration. Nephrology consultation was obtained. His antihypertensive medications were discontinued. Upper endoscopy confirmed no acute ulceration with his epigastric abdominal pain. He reports pre-existing constipation present prior to admission. He was placed on bowel regimen including lactulose, Colace including soapsuds enema and fleets enema. Prior to discharge, his dehydration was corrected. He was tolerating diet. PHYSICAL EXAM: VITAL SIGNS: Height 5 foot 7 inches, weight 348 pounds. BMI 54.6 GENERAL: Well-developed in no acute distress. HEENT: No scleral icterus. Extraocular movements grossly intact. Hears conversational speech. No nasal drainage. NECK: Supple without lymphadenopathy. CHEST: Nonlabored respirations with equal bilateral excursions. CARDIOVASCULAR: Regular rate and regular rhythm. Distal 2+ pulses. ABDOMEN: Obese, soft, nontender, nondistended. MUSCULOSKELETAL: No clubbing, cyanosis. NEURO: No focal or lateralizing signs. Cranial nerves 2 through 12 grossly within normal limits. PSYCH: Appropriate affect. Alert and oriented to person, place and time. SKIN: Good skin turgor. Well perfused. LABS: Creatinine elevated from 0.62 to 2.32, down to 1.3. Sodium low 132 now up to 140. ASSESSMENT: 1. Morbid obesity due to excess calories 2. Body mass index of 65.1 to 54.6 3. Osteoarthritis of the knees. 4. Osteoarthritis of the lower back. 5. Hypertensive heart disease. 6. Gastroesophageal reflux disease 7. DVT legs 8. Meniere's disease 9. Depressive disorder 10. Iron deficiency anemia 11. Vitamin D deficiency 12. Chronic gastritis 13. Acute renal failure 14. Hyponatremia 15. Dehydration 16. Epigastric abdominal pain PLAN: 1. Per recommendations of nephrology, diuretic including closure discontinued. Patient started on amlodipine 10 mg daily. 2. Discharge following bowel movements. 3. Follow up in one week at the bariatric center
== END 2020-05-27 16:08 | disposition home or self-care (01) | DRG 683 ==
LOC: 4SSUR 17:45
PROVIDERS: ADMIT Surgery Plastic and Reconstructive Surgery; ATTEND Surgery Plastic and Reconstructive Surgery
PROC: 0DB78ZX Excision of Stomach, Pylorus, Via Natural or Artificial Opening Endoscopic, Diagnostic (ICD-10-PCS; principal; 2020-05-26 07:30)
DX: N17.9 Acute kidney failure, unspecified (principal); Z68.44 Body mass index [BMI] 60.0-69.9, adult; E87.1 Hypo-osmolality and hyponatremia; K22.10 Ulcer of esophagus without bleeding; E66.01 Morbid (severe) obesity due to excess calories; F32.9 Major depressive disorder, single episode, unspecified; E86.1 Hypovolemia; E86.0 Dehydration; K21.9 Gastro-esophageal reflux disease without esophagitis; T50.2X5A Adverse effect of carbonic-anhydrase inhibitors, benzothiadiazides and other diuretics, initial encounter; K59.00 Constipation, unspecified; I11.9 Hypertensive heart disease without heart failure; E55.9 Vitamin D deficiency, unspecified; D50.9 Iron deficiency anemia, unspecified; H81.09 Meniere's disease, unspecified ear; F41.9 Anxiety disorder, unspecified; K29.00 Acute gastritis without bleeding; K29.30 Chronic superficial gastritis without bleeding; M17.0 Bilateral primary osteoarthritis of knee; M47.9 Spondylosis, unspecified; K44.9 Diaphragmatic hernia without obstruction or gangrene; Z79.82 Long term (current) use of aspirin; Z79.1 Long term (current) use of non-steroidal anti-inflammatories (NSAID); Z79.899 Other long term (current) drug therapy; Z86.718 Personal history of other venous thrombosis and embolism; Z87.891 Personal history of nicotine dependence; Z98.84 Bariatric surgery status; Z88.5 Allergy status to narcotic agent; Z82.61 Family history of arthritis; Z88.8 Allergy status to other drugs, medicaments and biological substances
CPT/HCPCS: 43239; 80048; 80053; 81003; 83735; 85025; 88305

== ENCOUNTER → 2020-05-25 | Outpatient (CLI) | payer BC, OTHER ==
--- NOTE | 2020-05-25 15:49 | P.PN ---
Subjective Progress Note Date: 05/25/20 DATE OF SERVICE: 05/25/2020 CHIEF COMPLAINT: Status post sleeve gastrectomy HISTORY OF PRESENT ILLNESS: Justo Davis is a 59-year-old male status post sleeve gastrectomy, 04/27/20. He is 1 month out. He reports pain with eating and drinking. He reports epigastric pain. He can take his pills. His pills do not get stuck. He reports thick mucus when he wakes up. He has history of low sodium. At height of 5 feet 7 inches, his ideal body weight is 158 pounds. His highest weight was 415 pounds. His highest BMI was 65.1. He comes in 347 pounds from 374 pounds, 1 month ago. He has lost 27 pounds in 1 month. Lifetime weight loss of 68 pounds. Percent excess weight loss lifetime, 26%. His body mass index is 54.5. He is 189 pounds overweight. PHYSICAL EXAM: VITAL SIGNS: Height 5 foot 7 inches, weight 347 pounds. BMI 54.5 Vital Signs Temp 97.9 F 05/25/20 16:26 Pulse 79 05/25/20 16:26 Resp 20 05/25/20 16:26 BP 102/68 05/25/20 16:26 Pulse Ox 97 05/25/20 16:26 GENERAL: Well-developed in no acute distress. HEENT: No scleral icterus. Extraocular movements grossly intact. Hears conversational speech. No nasal drainage. NECK: Supple without lymphadenopathy. CHEST: Nonlabored respirations with equal bilateral excursions. CARDIOVASCULAR: Regular rate and regular rhythm. Distal 2+ pulses. ABDOMEN: Incisions intact. No infection MUSCULOSKELETAL: No clubbing, cyanosis. Decreased edema of the lower extremities NEURO: No focal or lateralizing signs. Cranial nerves 2 through 12 grossly within normal limits. PSYCH: Appropriate affect. Alert and oriented to person, place and time. SKIN: Good skin turgor. Well perfused. ASSESSMENT: 1. Morbid obesity due to excess calories 2. Body mass index of 65.1, initial to 54.5 3. Osteoarthritis of the knees. 4. Osteoarthritis of the lower back. 5. Hypertensive heart disease. 6. Gastroesophageal reflux disease 7. DVT legs 8. Meniere's disease 9. Depressive disorder 10. Iron deficiency anemia 11. Vitamin D deficiency 12. Chronic gastritis 13. Dietary surveillance and counseling. 14. Status post sleeve gastrectomy 15. Recent acute kidney injury due to dehydration PLAN: 1. Recommend IV fluids for pre-existing history of dehydration and chronic kidney disease. 2. Recommend upper endoscopy as needed for dysphagia 3. Recommend bariatric labs.
[2020-05-25 16:01] VITALS: BMI 54.5
[2020-05-25 16:28] VITALS: BP 102/68; PULSE 79; RESP 20; TEMP 97.9
== END | disposition home or self-care (01) ==
LOC: BARWHC3 15:13
PROVIDERS: ATTEND Surgery Plastic and Reconstructive Surgery
DX: E66.01 Morbid (severe) obesity due to excess calories (principal); M17.0 Bilateral primary osteoarthritis of knee; M47.9 Spondylosis, unspecified; I11.9 Hypertensive heart disease without heart failure; K21.9 Gastro-esophageal reflux disease without esophagitis; I82.403 Acute embolism and thrombosis of unspecified deep veins of lower extremity, bilateral; H81.09 Meniere's disease, unspecified ear; E86.0 Dehydration; N17.9 Acute kidney failure, unspecified; F32.9 Major depressive disorder, single episode, unspecified; D50.9 Iron deficiency anemia, unspecified; E55.9 Vitamin D deficiency, unspecified; Z68.43 Body mass index [BMI] 50.0-59.9, adult; K29.50 Unspecified chronic gastritis without bleeding; Z71.3 Dietary counseling and surveillance; Z98.84 Bariatric surgery status
CPT/HCPCS: 99211

== ENCOUNTER → 2020-06-01 | Outpatient (CLI) | payer BC, OTHER ==
[2020-06-01 12:22] VITALS: BP 142/71; PULSE 68; TEMP 98.3; BMI 55.1
--- NOTE | 2020-06-01 12:56 | P.PN ---
Subjective Progress Note Date: 06/01/20 DATE OF SERVICE: 06/01/2020 CHIEF COMPLAINT: Status post sleeve gastrectomy HISTORY OF PRESENT ILLNESS: Justo Davis is a 59-year-old male status post sleeve gastrectomy, 04/27/20. He is 1 month out. He reports feeling better. He is off his hypertensive medications. He is tolerating diet. He is adjusting his diet. He is follow up on his hospitalization. He takes dyazide. At height of 5 feet 7 inches, his ideal body weight is 158 pounds. His highest weight was 415 pounds. His highest BMI was 65.1. He comes in 351 pounds from 347 pounds, 1 week ago. He has gained 4 pounds in 1 week. Lifetime weight loss of 64 pounds. Percent excess weight loss lifetime, 25%. His body mass index is 55.1. He is 193 pounds overweight. PHYSICAL EXAM: VITAL SIGNS: Height 5 foot 7 inches, weight 351 pounds. BMI 55.1 Vital Signs Temp 98.3 F 06/01/20 12:15 Pulse 68 06/01/20 12:15 Resp BP 142/71 06/01/20 12:15 Pulse Ox GENERAL: Well-developed in no acute distress. HEENT: No scleral icterus. Extraocular movements grossly intact. Hears conversational speech. No nasal drainage. NECK: Supple without lymphadenopathy. CHEST: Nonlabored respirations with equal bilateral excursions. CARDIOVASCULAR: Regular rate and regular rhythm. Distal 2+ pulses. ABDOMEN: Incisions intact. No infection MUSCULOSKELETAL: No clubbing, cyanosis. Decreased edema of the lower extremities NEURO: No focal or lateralizing signs. Cranial nerves 2 through 12 grossly within normal limits. PSYCH: Appropriate affect. Alert and oriented to person, place and time. SKIN: Good skin turgor. Well perfused. ASSESSMENT: 1. Morbid obesity due to excess calories 2. Body mass index of 65.1, initial to 55.1 3. Osteoarthritis of the knees. 4. Osteoarthritis of the lower back. 5. Hypertensive heart disease. 6. Gastroesophageal reflux disease 7. DVT legs 8. Meniere's disease 9. Depressive disorder 10. Iron deficiency anemia 11. Vitamin D deficiency 12. Chronic gastritis 13. Dietary surveillance and counseling. 14. Status post sleeve gastrectomy 15. Recent acute kidney injury due to dehydration PLAN: 1. Follow-up with Dr. Bernard 1 month. 2. Recommend avoid diuretics for hypertension. Objective - Vital Signs Vital signs: Vital Signs Temp 98.3 F 06/01/20 12:15 Pulse 68 06/01/20 12:15 Resp BP 142/71 06/01/20 12:15 Pulse Ox Intake & Output 05/31/20 06/01/20 06/01/20 18:59 06:59 18:59 Weight 159.665 kg
== END | disposition home or self-care (01) ==
LOC: BARWHC3 11:18
PROVIDERS: ATTEND Surgery Plastic and Reconstructive Surgery
DX: E66.01 Morbid (severe) obesity due to excess calories (principal); M17.0 Bilateral primary osteoarthritis of knee; M47.9 Spondylosis, unspecified; I11.9 Hypertensive heart disease without heart failure; K21.9 Gastro-esophageal reflux disease without esophagitis; H81.09 Meniere's disease, unspecified ear; I82.403 Acute embolism and thrombosis of unspecified deep veins of lower extremity, bilateral; F32.9 Major depressive disorder, single episode, unspecified; D50.9 Iron deficiency anemia, unspecified; E55.9 Vitamin D deficiency, unspecified; E86.0 Dehydration; K29.50 Unspecified chronic gastritis without bleeding; N17.9 Acute kidney failure, unspecified; Z68.43 Body mass index [BMI] 50.0-59.9, adult; Z71.3 Dietary counseling and surveillance; Z98.84 Bariatric surgery status
CPT/HCPCS: 97803; 99211

== ENCOUNTER → 2020-06-15 | Outpatient (CLI) | payer BC, OTHER ==
[2020-06-15 14:32] VITALS: BP 134/72; PULSE 61; RESP 16; TEMP 98.2; BMI 55.3
--- NOTE | 2020-06-15 14:48 | P.PN ---
Subjective Progress Note Date: 06/15/20 DATE OF SERVICE: 06/15/2020 CHIEF COMPLAINT: Status post sleeve gastrectomy HISTORY OF PRESENT ILLNESS: Justo Davis is a 59-year-old male status post sleeve gastrectomy, 04/27/20. He is 2 month out. He is drinking more water over 64 oz daily. He went to the local ER and reports kidney stones. He has lost 60+ pounds. His creatinine is normal. He reports having ketones. He is having bowel movements. He has history of DVT and swelling of the leg, pre-existing. At height of 5 feet 7 inches, his ideal body weight is 158 pounds. His highest weight was 415 pounds. His highest BMI was 65.1. He comes in 352 pounds from 351 pounds, 2 week ago. He has gained 1 pounds in 2 weeks. Lifetime weight loss of 63 pounds. Percent excess weight loss lifetime, 24%. His body mass index is 55.3. He is 194 pounds overweight. PHYSICAL EXAM: VITAL SIGNS: Height 5 foot 7 inches, weight 352 pounds. BMI 55.3 Vital Signs Temp 98.2 F 06/15/20 14:20 Pulse 61 06/15/20 14:20 Resp 16 06/15/20 14:20 BP 134/72 06/15/20 14:20 Pulse Ox GENERAL: Well-developed in no acute distress. HEENT: No scleral icterus. Extraocular movements grossly intact. Hears conversational speech. No nasal drainage. NECK: Supple without lymphadenopathy. CHEST: Nonlabored respirations with equal bilateral excursions. CARDIOVASCULAR: Regular rate and regular rhythm. Distal 2+ pulses. ABDOMEN: Incisions intact. No infection MUSCULOSKELETAL: No clubbing, cyanosis. 2+ edema lower extremity edema. NEURO: No focal or lateralizing signs. Cranial nerves 2 through 12 grossly within normal limits. PSYCH: Appropriate affect. Alert and oriented to person, place and time. SKIN: Good skin turgor. Well perfused. ASSESSMENT: 1. Morbid obesity due to excess calories 2. Body mass index of 65.1, initial to 55.3 3. Osteoarthritis of the knees. 4. Osteoarthritis of the lower back. 5. Hypertensive heart disease. 6. Gastroesophageal reflux disease 7. DVT legs 8. Meniere's disease 9. Depressive disorder 10. Iron deficiency anemia 11. Vitamin D deficiency 12. Chronic gastritis 13. Dietary surveillance and counseling. 14. Status post sleeve gastrectomy 15. Recent acute kidney injury due to dehydration PLAN: 1. Recommend follow up with client care coordinator for history of kidney failure 2. Recommend flomax for lower urinary obstructive symptoms. Objective - Vital Signs Vital signs: Vital Signs Temp 98.2 F 06/15/20 14:20 Pulse 61 06/15/20 14:20 Resp 16 06/15/20 14:20 BP 134/72 06/15/20 14:20 Pulse Ox Intake & Output 06/14/20 06/15/20 06/15/20 18:59 06:59 18:59 Weight 160.118 kg
== END | disposition home or self-care (01) ==
LOC: BARWHC3 14:04
PROVIDERS: ATTEND Surgery Plastic and Reconstructive Surgery
DX: E66.01 Morbid (severe) obesity due to excess calories (principal); M17.0 Bilateral primary osteoarthritis of knee; M47.9 Spondylosis, unspecified; I11.9 Hypertensive heart disease without heart failure; K21.9 Gastro-esophageal reflux disease without esophagitis; I82.403 Acute embolism and thrombosis of unspecified deep veins of lower extremity, bilateral; H81.09 Meniere's disease, unspecified ear; F32.9 Major depressive disorder, single episode, unspecified; D50.9 Iron deficiency anemia, unspecified; E55.9 Vitamin D deficiency, unspecified; N17.9 Acute kidney failure, unspecified; K29.50 Unspecified chronic gastritis without bleeding; Z71.3 Dietary counseling and surveillance; Z68.43 Body mass index [BMI] 50.0-59.9, adult; Z98.84 Bariatric surgery status
CPT/HCPCS: 99201; 99211

== ENCOUNTER → 2020-06-29 | Outpatient (CLI) | payer BC, OTHER ==
[2020-06-29 13:21] VITALS: BP 142/83; PULSE 87; RESP 18; TEMP 98.3
--- NOTE | 2020-06-29 13:57 | P.PN ---
Subjective Progress Note Date: 06/29/20 DATE OF SERVICE: 06/29/2020 CHIEF COMPLAINT: Status post sleeve gastrectomy HISTORY OF PRESENT ILLNESS: Justo Davis is a 59-year-old male status post sleeve gastrectomy, 04/27/20. He is 2 month out. He lost 80 pounds in 2 months. He is on diuretics and placed back on them by the coin machine mechanic. He reports low potassium. He is happy with his weight loss. He wants to get down to 200 pounds. At height of 5 feet 7 inches, his ideal body weight is 158 pounds. His highest weight was 415 pounds. His highest BMI was 65.1. He comes in 334 pounds from 352 pounds, 2 week ago. He has lost 18 pounds in 2 weeks. Lifetime weight loss of 81 pounds. Percent excess weight loss lifetime, 31 %. His body mass index is 52.5. He is 176 pounds overweight. PHYSICAL EXAM: VITAL SIGNS: Height 5 foot 7 inches, weight 334 pounds. BMI 52.5 Vital Signs Temp 98.3 F 06/29/20 13:14 Pulse 87 06/29/20 13:14 Resp 18 06/29/20 13:14 BP 142/83 06/29/20 13:14 Pulse Ox GENERAL: Well-developed in no acute distress. HEENT: No scleral icterus. Extraocular movements grossly intact. Hears conversational speech. No nasal drainage. NECK: Supple without lymphadenopathy. CHEST: Nonlabored respirations with equal bilateral excursions. CARDIOVASCULAR: Regular rate and regular rhythm. Distal 2+ pulses. ABDOMEN: Incisions intact. No infection MUSCULOSKELETAL: No clubbing, cyanosis. NEURO: No focal or lateralizing signs. Cranial nerves 2 through 12 grossly within normal limits. PSYCH: Appropriate affect. Alert and oriented to person, place and time. SKIN: Good skin turgor. Well perfused. ASSESSMENT: 1. Morbid obesity due to excess calories 2. Body mass index of 65.1, initial to 52.5 3. Osteoarthritis of the knees. 4. Osteoarthritis of the lower back. 5. Hypertensive heart disease. 6. Gastroesophageal reflux disease 7. DVT legs 8. Meniere's disease 9. Depressive disorder 10. Iron deficiency anemia 11. Vitamin D deficiency 12. Chronic gastritis 13. Dietary surveillance and counseling. 14. Status post sleeve gastrectomy 15. Chronic kidney disease PLAN: 1. Follow up labs for low potassium. Objective - Vital Signs Vital signs: Vital Signs Temp 98.3 F 06/29/20 13:14 Pulse 87 06/29/20 13:14 Resp 18 06/29/20 13:14 BP 142/83 06/29/20 13:14 Pulse Ox Intake & Output 06/28/20 06/29/20 06/29/20 18:59 06:59 18:59 Weight 151.953 kg - Labs CBC & Chem 7: 06/29/20 14:25 06/29/20 14:25
[2020-06-29 15:11] LABS: HCT 43.5 % (39.0-53.0); HGB 13.7 gm/dL (13.0-17.5); MCHC 31.4 g/dL (31.0-37.0); MCV 86.1 fL (80.0-100.0); Mean Platelet Volume 7.3; Platelet Count 308 k/uL (150-450); RBC 5.06 m/uL (4.30-5.90); RDW 14.9 % (11.5-15.5)
[2020-06-30 00:22] LABS: % Iron Saturation 18.54 (15.00-50.00); African American GFR (CKD) 77.3 (60.0-200.0); Albumin 4.5 g/dL (3.80-4.90); Albumin/Globulin Ratio 1.67 (1.60-3.17); Anion Gap 9.3 mmol/L (4.00-12.00); Calcium 10.1 mg/dL (8.7-10.3); Carbon Dioxide 31.7 mmol/L (21.6-31.8); Chol/HDL Ratio 3.98; Globulin 2.7 g/dL (1.6-3.3); LDL Cholesterol,Calculated 142.4 mg/dL (0.0-131.0); Magnesium 1.9 mg/dL (1.5-2.4); Non-African American GFR(CKD) 66.7 (60.0-200.0); Phosphorus 3.7 mg/dL (2.4-5.1); Potassium 4.2 mmol/L (3.5-5.5); Total Bilirubin 0.7 mg/dL (0.3-1.2); Total Protein 7.2 g/dL (6.2-8.2); VLDL Calculation 24.6 mg/dL (5.00-40.00)
[2020-06-30 00:32] LABS: Ferritin 257.7 ng/mL (22.0-322.0)
[2020-06-30 00:40] LABS: Folate, Serum 22.2 ng/mL
[2020-06-30 00:41] LABS: Hemoglobin A1C 5.6 % (4.0-6.0)
[2020-06-30 03:20] LABS: INR 1.04 (0.90-1.11); Partial Thromboplastin Time 27.6 sec (23.5-31.0); Prothrombin Time 11.2 sec (9.9-11.9)
[2020-07-01 13:55] LABS: Zinc, Serum 70 ug/dL (60-130)
[2020-07-02 19:04] LABS: Selenium 124 mcg/L (63-160)
[2020-07-04 06:30] LABS: Vit B1(Thiamine) 70 ug/L (38-122)
[2020-07-04 06:47] LABS: Vitamin A 61 ug/dL (38-106)
== END | disposition home or self-care (01) ==
LOC: BARWHC3 12:55
PROVIDERS: ATTEND Surgery Plastic and Reconstructive Surgery
DX: E66.01 Morbid (severe) obesity due to excess calories (principal); Z68.43 Body mass index [BMI] 50.0-59.9, adult; M17.0 Bilateral primary osteoarthritis of knee; M47.9 Spondylosis, unspecified; K21.9 Gastro-esophageal reflux disease without esophagitis; F32.9 Major depressive disorder, single episode, unspecified; D50.9 Iron deficiency anemia, unspecified; E55.9 Vitamin D deficiency, unspecified; Z71.3 Dietary counseling and surveillance; I13.10 Hypertensive heart and chronic kidney disease without heart failure, with stage 1 through stage 4 chronic kidney disease, or unspecified chronic kidney disease; N18.9 Chronic kidney disease, unspecified; Z98.84 Bariatric surgery status; H81.09 Meniere's disease, unspecified ear; I82.403 Acute embolism and thrombosis of unspecified deep veins of lower extremity, bilateral; D50.8 Other iron deficiency anemias; E89.1 Postprocedural hypoinsulinemia; E44.0 Moderate protein-calorie malnutrition; K74.1 Hepatic sclerosis; K50.90 Crohn's disease, unspecified, without complications
CPT/HCPCS: 80053; 80061; 82306; 82525; 82607; 82728; 82746; 83036; 83540; 83550; 83735; 83970; 84100; 84134; 84255; 84425; 84443; 84590; 84630; 85027; 85610; 85730; 99211

== ENCOUNTER → 2020-08-17 | Outpatient (CLI) | payer BC, OTHER ==
[2020-08-17 13:26] VITALS: BP 164/86; PULSE 74; RESP 18; TEMP 97.6; BMI 51.5
--- NOTE | 2020-08-17 13:45 | P.PN ---
Subjective Progress Note Date: 08/17/20 DATE OF SERVICE: 08/17/2020 CHIEF COMPLAINT: Status post sleeve gastrectomy HISTORY OF PRESENT ILLNESS: Justo Davis is a 59-year-old male status post sleeve gastrectomy, 04/27/20. He is 4 months out. He has lost almost 100 pounds. His shoulder feels better. He still reports knee pain. His highest w eight is 416 pounds. He reports a rough time in the beginning of his weight loss journey. He had dehydration now improved. He is only taking Diazide and Norvasc. He is taking fewer medications. He reports swelling in the legs has moderately improved. He reports trouble with his left leg with multiple vein stripping and blood clots that was pre-existing. He is getting 50 to 65 grams protein daily. No reports of dysphagia. At height of 5 feet 7 inches, his ideal body weight is 158 pounds. His highest weight was 416 pounds. His highest BMI was 65.3. He comes in 328 pounds from 334 pounds, 2 months ago. He has lost 6 pounds in 2 months. Lifetime weight loss of 88 pounds. Percent excess weight loss lifetime, 34 %. His body mass index is 51.5. He is 170 pounds overweight. PHYSICAL EXAM: VITAL SIGNS: Height 5 foot 7 inches, weight 328 pounds. BMI 51.5 Vital Signs Temp 97.6 F 08/17/20 13:23 Pulse 74 08/17/20 13:23 Resp 18 08/17/20 13:23 BP 164/86 08/17/20 13:23 Pulse Ox Intake & Output 08/17/20 08/17/20 08/18/20 06:59 18:59 06:59 Weight 149.232 kg GENERAL: Well-developed in no acute distress. HEENT: No scleral icterus. Extraocular movements grossly intact. Hears conversational speech. No nasal drainage. NECK: Supple without lymphadenopathy. CHEST: Nonlabored respirations with equal bilateral excursions. CARDIOVASCULAR: Regular rate and regular rhythm. Distal 2+ pulses. ABDOMEN: Incisions intact. No infection MUSCULOSKELETAL: No clubbing, cyanosis. NEURO: No focal or lateralizing signs. Cranial nerves 2 through 12 grossly within normal limits. PSYCH: Appropriate affect. Alert and oriented to person, place and time. SKIN: Good skin turgor. Well perfused. ASSESSMENT: 1. Morbid obesity due to excess calories 2. Body mass index of 65.1, initial to 51.5 3. Osteoarthritis of the knees. 4. Osteoarthritis of the lower back. 5. Hypertensive heart disease. 6. Gastroesophageal reflux disease 7. DVT legs 8. Meniere's disease 9. Depressive disorder 10. Iron deficiency anemia 11. Vitamin D deficiency 12. Chronic gastritis 13. Dietary surveillance and counseling. 14. Status post sleeve gastrectomy 15. Chronic kidney disease PLAN: 1. Recommend bariatric labs 2. Continue fluid intake 64 pounces daily 3. Follow up 6 months post-op. Objective - Vital Signs Vital signs: Vital Signs Temp 97.6 F 08/17/20 13:23 Pulse 74 08/17/20 13:23 Resp 18 08/17/20 13:23 BP 164/86 08/17/20 13:23 Pulse Ox Intake & Output 08/16/20 08/17/20 08/17/20 18:59 06:59 18:59 Weight 149.232 kg - Labs CBC & Chem 7: 08/17/20 14:07 08/17/20 14:07
[2020-08-17 14:53] LABS: HCT 41.4 % (39.0-53.0); HGB 13.6 gm/dL (13.0-17.5); MCH 28.5 pg (25.0-35.0); MCHC 32.9 g/dL (31.0-37.0); MCV 86.6 fL (80.0-100.0); Mean Platelet Volume 6.5; Platelet Count 350 k/uL (150-450); RBC 4.78 m/uL (4.30-5.90); RDW 13.8 % (11.5-15.5)
[2020-08-17 20:45] LABS: Hemoglobin A1C 5.1 % (4.0-6.0)
[2020-08-17 21:09] LABS: % Iron Saturation 16.67 (15.00-50.00); African American GFR (CKD) 85.9 (60.0-200.0); Albumin 4.6 g/dL (3.80-4.90); Albumin/Globulin Ratio 1.77 (1.60-3.17); Anion Gap 12.6 mmol/L (4.00-12.00); BUN/Creat Ratio 19.09 Ratio (12.00-20.00); Calcium 9.6 mg/dL (8.7-10.3); Carbon Dioxide 30.4 mmol/L (21.6-31.8); Chol/HDL Ratio 3.71; Globulin 2.6 g/dL (1.6-3.3); LDL Cholesterol,Calculated 136.4 mg/dL (0.0-131.0); Magnesium 1.8 mg/dL (1.5-2.4); Non-African American GFR(CKD) 74.1 (60.0-200.0); Phosphorus 3.9 mg/dL (2.4-5.1); Potassium 4.2 mmol/L (3.5-5.5); Total Bilirubin 0.5 mg/dL (0.3-1.2); Total Protein 7.2 g/dL (6.2-8.2); VLDL Calculation 31.6 mg/dL (5.00-40.00)
[2020-08-17 21:19] LABS: Ferritin 161.2 ng/mL (22.0-322.0)
[2020-08-17 21:49] LABS: Folate, Serum 21.1 ng/mL
[2020-08-17 23:50] LABS: INR 1.02 (0.90-1.11); Partial Thromboplastin Time 29.5 sec (23.5-31.0)
[2020-08-18 13:01] LABS: Zinc, Serum 73 ug/dL (60-130)
[2020-08-19 06:55] LABS: Vitamin A 53 ug/dL (38-106)
[2020-08-19 07:23] LABS: Vit B1(Thiamine) 70 ug/L (38-122)
== END | disposition home or self-care (01) ==
LOC: BARWHC3 13:03
PROVIDERS: ATTEND Surgery Plastic and Reconstructive Surgery
DX: E66.01 Morbid (severe) obesity due to excess calories (principal); Z68.43 Body mass index [BMI] 50.0-59.9, adult; M17.0 Bilateral primary osteoarthritis of knee; M47.9 Spondylosis, unspecified; K21.9 Gastro-esophageal reflux disease without esophagitis; F32.9 Major depressive disorder, single episode, unspecified; D50.9 Iron deficiency anemia, unspecified; E55.9 Vitamin D deficiency, unspecified; Z71.3 Dietary counseling and surveillance; I13.10 Hypertensive heart and chronic kidney disease without heart failure, with stage 1 through stage 4 chronic kidney disease, or unspecified chronic kidney disease; N18.9 Chronic kidney disease, unspecified; K29.50 Unspecified chronic gastritis without bleeding; H81.09 Meniere's disease, unspecified ear; I82.409 Acute embolism and thrombosis of unspecified deep veins of unspecified lower extremity; Z98.84 Bariatric surgery status; D50.8 Other iron deficiency anemias; E44.0 Moderate protein-calorie malnutrition; K50.90 Crohn's disease, unspecified, without complications; K74.1 Hepatic sclerosis
CPT/HCPCS: 80053; 80061; 82306; 82525; 82607; 82728; 82746; 83036; 83540; 83550; 83735; 83970; 84100; 84134; 84255; 84425; 84443; 84590; 84630; 85027; 85610; 85730; 99211

== ENCOUNTER → 2020-11-23 | Outpatient (CLI) | payer BC, OTHER ==
--- NOTE | 2020-11-23 18:54 | P.PN ---
Subjective Progress Note Date: 11/23/20 DATE OF SERVICE: 11/23/2020 CHIEF COMPLAINT: Status post sleeve gastrectomy HISTORY OF PRESENT ILLNESS: Justo Davis is a 59-year-old male status post sleeve gastrectomy, 04/27/20. He is over 7 months out. He comes in with new abdominal pain in the last 1 month. He reports right upper quadrant abdominal pain only with bending down for the last 2 to 3 weeks. He has lost almost 100 pounds. He denies heartburn. He is still on medications for his blood pressure. He has less swelling of the legs. At height of 5 feet 7 inches, his ideal body weight is 158 pounds. His highest weight was 416 pounds. His highest BMI was 65.3. He comes in 322 pounds from 328 pounds, 3 months ago. He has lost 6 pounds in 3 months. Lifetime weight loss of 94 pounds. Percent excess weight loss lifetime, 36 %. His body mass index is 50.6. He is 164 pounds overweight. PAST MEDICAL HISTORY: 1. Morbid obesity due to excess calories 2. Body mass index of 65.1, initial 3. Osteoarthritis of the knees. 4. Osteoarthritis of the lower back. 5. Hypertensive heart disease. 6. Gastroesophageal reflux disease 7. DVT legs 8. Meniere's disease 9. Depressive disorder PAST SURGICAL HISTORY: 1. Varicose vein stripping 2. Umbilical hernia repair 3. Stents bilateral common iliac vein 4. Status post sleeve gastrectomy HOME MEDICATIONS: Home Medications Medication Instructions Recorded Confirmed Omeprazole 40 mg PO HS 05/25/20 12/14/20 Diazoxide 1 mg PO DIRECTED 06/29/20 12/14/20 polyethylene glycoL 3350 [Miralax] 17 gm PO BID PRN 08/17/20 12/14/20 Previous Rx's Medication Instructions Recorded Ondansetron Odt [Zofran ODT] 4 mg PO Q8HR PRN #9 tab 04/29/20 Acetaminophen Tab [Tylenol Tab] 1,000 mg PO Q6HR PRN #30 tablet 05/27/20 amLODIPine [Norvasc] 10 mg PO DAILY #30 tablet 05/27/20 ALLERGIES: Allergies Allergy/AdvReac Type Severity Reaction Status Date / Time morphine Allergy Itching/ Verified 12/14/20 14:05 nortriptyline Allergy NAUSEA , Verified 12/14/20 14:05 HEADACHE SOCIAL HISTORY: Past tobacco use. FAMILY HISTORY: No family history of ulcerative colitis disease or Crohn's disease. Family history of morbid obesity. No lupus in the family. No reports of stomach or esophageal cancer. REVIEW OF ORGAN SYSTEMS: CONSTITUTIONAL: At height of 5 feet 7 inches, his ideal body weight is 158 pounds. His highest weight was 415 pounds. His highest BMI was 65.1. HEENT: Denies any active troubles with vision or hearing. ENDOCRINE: No diabetes. No hypothyroidism. CARDIOVASCULAR: No past reports of palpitations or heart attacks or chest pain. Hypertensive heart disease. RESPIRATORY: Denies daytime somnolence. No asthma. GASTROINTESTINAL: Denies any bright red blood per rectum. No diarrhea. No constipation. MUSCULOSKELETAL: Has lower back pain and joint pain. Has osteoarthritis of the knees. History of bilateral lower extremity edema. NEURO: No headaches. No seizure disorders. PSYCH: Has depression. No suicidal ideation. RHEUMATOLOGIC: No lupus. No rheumatoid arthritis. HEMATOLOGIC: Denies any abnormal bleeding or bruising. Personal history of DVTs. SKIN: No rash. No skin cancer. GENITOURINARY: Has chronic kidney disease, Stage III. No blood in urine. PHYSICAL EXAM: VITAL SIGNS: Height 5 foot 7 inches, weight 322 pounds. BMI 50.6 Vital Signs Temp 97.9 F 11/23/20 18:49 Pulse 62 11/23/20 18:49 Resp 16 11/23/20 18:49 BP 152/86 11/23/20 18:49 Pulse Ox GENERAL: Well-developed in no acute distress. HEENT: No scleral icterus. Extraocular movements grossly intact. Hears conversational speech. No nasal drainage. NECK: Supple without lymphadenopathy. CHEST: Nonlabored respirations with equal bilateral excursions. CARDIOVASCULAR: Regular rate and regular rhythm. Distal 2+ pulses. ABDOMEN: Incisions intact. No infection MUSCULOSKELETAL: No clubbing, cyanosis. NEURO: No focal or lateralizing signs. Cranial nerves 2 through 12 grossly within normal limits. PSYCH: Appropriate affect. Alert and oriented to person, place and time. SKIN: Good skin turgor. Well perfused. LABS: Iron is low. Triglycerides is elevated. Cholesterol is elevated. ASSESSMENT: 1. Morbid obesity due to excess calories 2. Body mass index of 65.1, initial to 50.6 3. Osteoarthritis of the knees. 4. Osteoarthritis of the lower back. 5. Hypertensive heart disease. 6. Gastroesophageal reflux disease 7. DVT legs 8. Meniere's disease 9. Depressive disorder 10. Iron deficiency anemia 11. Vitamin D deficiency 12. Chronic gastritis 13. Dietary surveillance and counseling. 14. Status post sleeve gastrectomy 15. Chronic kidney disease 16. Cholecystitis PLAN: 1. He reports right upper quadrant abdominal pain with weight loss, recommend right upper quadrant ultrasound of the gallbladder for gallstones. 2. Recommend bariatric labs. 3. He may have potential adhesions which may need further evaluation.
== END ==
CPT/HCPCS: 97803; 99211

== ENCOUNTER → 2020-11-30 | Outpatient (CLI) | payer BC, OTHER ==
--- NOTE | 2020-11-30 10:01 | US ---
EXAMINATION TYPE: US gallbladder DATE OF EXAM: 11/30/2020 COMPARISON: NONE CLINICAL HISTORY: R10.11 RUQ pain. bariatric patient, morbidly obese, RUQ pain a few weeks ago, none now EXAM MEASUREMENTS: Liver Length: 16.3 cm Gallbladder Wall: 0.3 cm CBD: 0.6 cm Right Kidney: 11.2 x 4.5 x 6.1 cm habitus and bowel gas limits study Pancreas: not seen due to bowel gas Liver: difficult to penetrate Gallbladder: wnl Evidence for sonographic Bowling's sign: no CBD: wnl Right Kidney: wnl IMPRESSION: Hepatic steatosis.
[2020-11-30 10:35] LABS: HCT 39.5 % (39.0-53.0); HGB 13.2 gm/dL (13.0-17.5); MCH 28.1 pg (25.0-35.0); MCHC 33.3 g/dL (31.0-37.0); MCV 84.4 fL (80.0-100.0); Mean Platelet Volume 6.5; Platelet Count 309 k/uL (150-450); RBC 4.69 m/uL (4.30-5.90); RDW 13.2 % (11.5-15.5); WBC 6.2 k/uL (3.8-10.6)
[2020-11-30 10:46] LABS: Partial Thromboplastin Time 24.2 sec (22.0-30.0); Prothrombin Time 10.4 sec (9.0-12.0)
[2020-11-30 11:01] LABS: ALT 19 U/L (4-49); AST 28 U/L (17-59); African American GFR (CKD) >90 (>60 ml/min/1.73 sqM); Albumin 4.2 g/dL (3.5-5.0); Alkaline Phosphatase 65 U/L (38-126); Anion Gap 5 mmol/L; Blood Urea Nitrogen 21 mg/dL (9-20); Calcium 9.3 mg/dL (8.4-10.2); Carbon Dioxide 31 mmol/L (22-30); Chloride 103 mmol/L (98-107); Glucose 81 mg/dL (74-99); Non-African American GFR(CKD) 88 (>60 ml/min/1.73 sqM); Phosphorus 3.8 mg/dL (2.5-4.5); Sodium 139 mmol/L (137-145); Total Bilirubin 0.5 mg/dL (0.2-1.3); Total Protein 7.3 g/dL (6.3-8.2)
[2020-11-30 11:03] LABS: Potassium 4.1 mmol/L (3.5-5.1)
[2020-11-30 13:01] LABS: Cholesterol 208 mg/dL (<200); HDL Cholesterol 61 mg/dL (40-60); LDL Cholesterol,Calculated 131 mg/dL (0-99); Triglycerides 80 mg/dL (<150)
[2020-11-30 19:10] LABS: Hemoglobin A1C 5.3 % (4.0-6.0)
[2020-12-01 02:17] LABS: % Iron Saturation 21.19 (15.00-50.00); Iron 64 ug/dL (65-175); Total Iron Binding Capacity 302 ug/dL (228-460)
[2020-12-01 02:31] LABS: Ferritin 110.2 ng/mL (22.0-322.0)
[2020-12-01 02:51] LABS: Folate, Serum >24.0 ng/mL
[2020-12-01 14:27] LABS: Zinc, Serum 71 ug/dL (60-130)
[2020-12-02 07:19] LABS: Vitamin A 56 ug/dL (38-106)
== END | disposition home or self-care (01) ==
LOC: RADUSWWP 09:09
PROVIDERS: ATTEND Surgery Plastic and Reconstructive Surgery
DX: K76.0 Fatty (change of) liver, not elsewhere classified (principal); E89.1 Postprocedural hypoinsulinemia; D50.8 Other iron deficiency anemias; K90.89 Other intestinal malabsorption; E55.9 Vitamin D deficiency, unspecified; K74.1 Hepatic sclerosis; N19 Unspecified kidney failure; K50.90 Crohn's disease, unspecified, without complications; E66.01 Morbid (severe) obesity due to excess calories
CPT/HCPCS: 76705; 80053; 80061; 82306; 82525; 82607; 82728; 82746; 83036; 83540; 83550; 83735; 83970; 84100; 84134; 84255; 84425; 84443; 84590; 84630; 85027; 85610; 85730

== ENCOUNTER → 2020-12-14 | Outpatient (CLI) | payer BC, OTHER ==
[2020-12-14 14:12] VITALS: BP 144/83; PULSE 59; RESP 18; TEMP 98.4; BMI 50.5
--- NOTE | 2020-12-14 14:35 | P.PN ---
Subjective Progress Note Date: 12/14/20 DATE OF SERVICE: 12/14/2020 CHIEF COMPLAINT: Status post sleeve gastrectomy HISTORY OF PRESENT ILLNESS: Justo Davis is a 59-year-old male status post sleeve gastrectomy, 04/27/20. He is a 8 to 9 months out. His weight is stable. He reports having a thrombosed hemorrhoid. He is feeling better. He comes in following ultrasound of his gallbladder. He denies any further abdominal pain at the right upper quadrant. His protein intake is 65 grams of protein dialy. He is not keeping a food diary journal. He reports eating the wrong foods. He is eating pasta, bread, rice and potato. At height of 5 feet 7 inches, his ideal body weight is 158 pounds. His highest weight was 416 pounds. His highest BMI was 65.3. He comes in 322 pounds unchanged in 3 months ago. Lifetime weight loss of 94 pounds. Percent excess weight loss lifetime, 36 %. His body mass index is 50.6. He is 164 pounds overweight. PAST MEDICAL HISTORY: 1. Morbid obesity due to excess calories 2. Body mass index of 65.1, initial 3. Osteoarthritis of the knees. 4. Osteoarthritis of the lower back. 5. Hypertensive heart disease. 6. Gastroesophageal reflux disease 7. DVT legs 8. Meniere's disease 9. Depressive disorder PAST SURGICAL HISTORY: 1. Varicose vein stripping 2. Umbilical hernia repair 3. Stents bilateral common iliac vein 4. Status post sleeve gastrectomy HOME MEDICATIONS: Home Medications Medication Instructions Recorded Confirmed Omeprazole 40 mg PO HS 05/25/20 12/14/20 Diazoxide 1 mg PO DIRECTED 06/29/20 12/14/20 polyethylene glycoL 3350 [Miralax] 17 gm PO BID PRN 08/17/20 12/14/20 Previous Rx's Medication Instructions Recorded Ondansetron Odt [Zofran ODT] 4 mg PO Q8HR PRN #9 tab 04/29/20 Acetaminophen Tab [Tylenol Tab] 1,000 mg PO Q6HR PRN #30 tablet 05/27/20 amLODIPine [Norvasc] 10 mg PO DAILY #30 tablet 05/27/20 ALLERGIES: Allergies Allergy/AdvReac Type Severity Reaction Status Date / Time morphine Allergy Itching/ Verified 12/14/20 14:05 nortriptyline Allergy NAUSEA , Verified 12/14/20 14:05 HEADACHE SOCIAL HISTORY: Past tobacco use. FAMILY HISTORY: No family history of ulcerative colitis disease or Crohn's disease. Family history of morbid obesity. No lupus in the family. No reports of stomach or esophageal cancer. REVIEW OF ORGAN SYSTEMS: CONSTITUTIONAL: At height of 5 feet 7 inches, his ideal body weight is 158 pounds. His highest weight was 416 pounds. His highest BMI was 65.1. HEENT: Denies any active troubles with vision or hearing. ENDOCRINE: No diabetes. No hypothyroidism. CARDIOVASCULAR: No past reports of palpitations or heart attacks or chest pain. Hypertensive heart disease. RESPIRATORY: Denies daytime somnolence. No asthma. GASTROINTESTINAL: He had a thrombosed hemorrhoid with pain. No diarrhea. No constipation. MUSCULOSKELETAL: Has lower back pain and joint pain. Has osteoarthritis of the knees. History of bilateral lower extremity edema. NEURO: No headaches. No seizure disorders. PSYCH: Has depression. No suicidal ideation. RHEUMATOLOGIC: No lupus. No rheumatoid arthritis. HEMATOLOGIC: Denies any abnormal bleeding or bruising. Personal history of DVTs. SKIN: No rash. No skin cancer. GENITOURINARY: Has chronic kidney disease, Stage III. No blood in urine. PHYSICAL EXAM: VITAL SIGNS: Height 5 foot 7 inches, weight 322 pounds. BMI 50.6 Vital Signs Temp 98.4 F 12/14/20 14:04 Pulse 59 L 12/14/20 14:04 Resp 18 12/14/20 14:04 BP 144/83 12/14/20 14:04 Pulse Ox GENERAL: Well-developed in no acute distress. HEENT: No scleral icterus. Extraocular movements grossly intact. Hears conversational speech. No nasal drainage. NECK: Supple without lymphadenopathy. CHEST: Nonlabored respirations with equal bilateral excursions. CARDIOVASCULAR: Regular rate and regular rhythm. Distal 2+ pulses. ABDOMEN: Incisions intact. No infection MUSCULOSKELETAL: No clubbing, cyanosis. NEURO: No focal or lateralizing signs. Cranial nerves 2 through 12 grossly within normal limits. PSYCH: Appropriate affect. Alert and oriented to person, place and time. SKIN: Good skin turgor. Well perfused. LABS: Iron is low. Triglycerides is elevated. Cholesterol is elevated. STUDIES: Ultrasound of gallbladder independently without large gallstones. Questionable sludge in the gallbladder identified. This is my independent interpretation. ASSESSMENT: 1. Morbid obesity due to excess calories 2. Body mass index of 65.1, initial to 50.6 3. Osteoarthritis of the knees. 4. Osteoarthritis of the lower back. 5. Hypertensive heart disease. 6. Gastroesophageal reflux disease 7. DVT legs 8. Meniere's disease 9. Depressive disorder 10. Iron deficiency anemia 11. Vitamin D deficiency 12. Chronic gastritis 13. Dietary surveillance and counseling. 14. Status post sleeve gastrectomy 15. Chronic kidney disease 16. Right upper quadrant abdominal pain. PLAN: 1. He reports eating the wrong foods eating the wrong foods. Recommend food diary journal. 2. Recommend new bariatric labs. 3. Recommend bariatric dietitian. Objective - Vital Signs Vital signs: Vital Signs Temp 98.4 F 12/14/20 14:04 Pulse 59 L 12/14/20 14:04 Resp 18 12/14/20 14:04 BP 144/83 12/14/20 14:04 Pulse Ox Intake & Output 12/13/20 12/14/20 12/14/20 18:59 06:59 18:59 Weight 146.51 kg
== END ==
LOC: BARWHC3 13:04
PROVIDERS: ATTEND Surgery Plastic and Reconstructive Surgery
DX: E66.01 Morbid (severe) obesity due to excess calories (principal); D50.9 Iron deficiency anemia, unspecified; E55.9 Vitamin D deficiency, unspecified; F32.9 Major depressive disorder, single episode, unspecified; M17.0 Bilateral primary osteoarthritis of knee; K21.9 Gastro-esophageal reflux disease without esophagitis; N18.9 Chronic kidney disease, unspecified; K29.50 Unspecified chronic gastritis without bleeding; M47.9 Spondylosis, unspecified; I11.9 Hypertensive heart disease without heart failure; H81.09 Meniere's disease, unspecified ear; I82.403 Acute embolism and thrombosis of unspecified deep veins of lower extremity, bilateral; Z68.43 Body mass index [BMI] 50.0-59.9, adult; Z98.84 Bariatric surgery status; Z87.891 Personal history of nicotine dependence; Z71.2 Person consulting for explanation of examination or test findings; Z71.3 Dietary counseling and surveillance; Z88.5 Allergy status to narcotic agent
CPT/HCPCS: 99211

== ENCOUNTER → 2022-09-05 | Outpatient (CLI) | payer MEDICARE, OTHER ==
[2022-09-05 14:29] VITALS: BP 131/75; PULSE 65; RESP 12; TEMP 98; BMI 53.7
--- NOTE | 2022-09-05 15:10 | P.HPBAR ---
Bariatric H&P - History & Physicial H&P Date: 09/05/22 History & Physicial: Visit/CC: 1 yr follow up Patient initial contact: Initial weight: 175.812 kg Initial weight in pounds: 387.60 Height: 5 ft 7 in Initial BMI: 60.7 Last weight: Current weight: 155.764 kg Current weight in pounds: 343.40 Current BMI: 53.7 Addison body weight (based on NIH guidelines): 67.132 kg Excess body weight loss: 18.4% The patient is a 61 year-old M who presents for Bariatric Assessment. He is stress eating with granddaughter living with him. He is seeing a counselor. Last follow up 2 years ago. He reports anxiety attacks. He is seeing a counselor. Recommend bariatric labs. He was not taking Vitamin D. Recommend food 90 grams of protein daily. Past Medical History Past Medical History: GERD/Reflux, Hypertension, Osteoarthritis (OA) Additional Past Medical History / Comment(s): Meniere's disease (Takes Dyazide for this condition), LEFT LEG DVT; Left shoulder pain "bone on bone", varicose veins, "irritation in stomach", hx gout, LEFT LEG GANGRENE History of Any Multi-Drug Resistant Organisms: None Reported Past Surgical History: Bariatric Surgery, Hernia Repair Additional Past Surgical History / Comment(s): Left leg varicose vein stripping and ablation and sclerotherapy (3 times), Right leg vein stripping and sclerotherapy, umbilical hernia repair with mesh, stents placed in bilateral exteriror iliac veins and common iliac veins (stents were placed through incisions on back), GASTRIC SLEEVE. Past Anesthesia/Blood Transfusion Reactions: No Reported Reaction Additional Past Anesthesia/Blood Transfusion Reaction / Comm: No history of blood transfusions to date Past Psychological History: Depression Additional Psychological History / Comment(s): 03/11/19: Pt states he takes herbal supplements (had been given an antidepressment but it made him deathly sick, was given another med to try but was fearful and so has been doing well on his herbal supplements) Smoking Status: Former smoker Past Alcohol Use History: Occasional Additional Past Alcohol Use History / Comment(s): STARTED SMOKING AT AGE 17 QUIT ON AND OFF LAST QUIT AT AGE 43 SMOKED 3/4 - 1PPD Past Drug Use History: None Reported Additional Drug Use History / Comment(s): uses hemp oil - Past Family History Mother Family Medical History: No Reported History Additional Family Medical History / Comment(s): . Father Family Medical History: Osteoarthritis (OA) Additional Family Medical History / Comment(s): at age 78 Surgical - Exam Vital Signs Temp Pulse Resp BP 98 F 65 12 131/75 09/05/22 14:20 09/05/22 14:20 09/05/22 14:20 09/05/22 14:20 Bariatric Checklist Checklist: Plan: Checklist: EGD: 1. Hiatal hernia: 2. H. Pylori: HgbA1c: Vitamin D: Smoking: Former smoker Primary care physician referral: DR. Stephanie RICHARDS Psychiatry clearance: Cardiology clearance: Sleep study: Diet journal: VTE risk score: VTE risk level: Rehab needs at discharge:
[2022-09-05 16:28] LABS: Partial Thromboplastin Time 25.4 sec (22.0-30.0); Prothrombin Time 10.6 sec (9.0-12.0)
[2022-09-05 23:14] LABS: Chol/HDL Ratio 2.86 Ratio; LDL Cholesterol,Calculated 117.7 mg/dL (0.0-131.0); VLDL Calculation 18.16 mg/dL (5.00-40.00)
[2022-09-05 23:27] LABS: HCT 43.1 % (39.6-50.0); HGB 13.6 g/dL (13.0-17.0); MCHC 31.6 g/dL (32.0-37.0); MCV 88.9 fL (80.0-97.0); Mean Platelet Volume 9.4 fL (9.5-12.2); NRBC Per 100 WBC 0 /100 WBCS (0.0-0.0); Platelet Count 343 X 10*3/uL (140-440); RBC 4.85 X 10*6/uL (4.40-5.60); RDW 13.4 % (11.5-14.5); WBC 6.56 X 10*3/uL (4.50-10.00)
[2022-09-05 23:31] LABS: % Iron Saturation 18.73 (15.00-50.00); ALT 57 U/L (10-49); AST 29 U/L (14-35); African American GFR (CKD) 100.5 (60.0-200.0); Albumin 4.4 g/dL (3.8-4.9); Albumin/Globulin Ratio 1.61 (1.60-3.17); Alkaline Phosphatase 84 U/L (41-126); BUN/Creat Ratio 18.01 Ratio (12.00-20.00); Blood Urea Nitrogen 17.2 mg/dL (9.0-27.0); Calcium 9.5 mg/dL (8.7-10.3); Carbon Dioxide 29.4 mmol/L (20.0-27.5); Chloride 99 mmol/L (96-109); Globulin 2.7 g/dL (1.6-3.3); Glucose 86 mg/dL (70-110); Iron 61 ug/dL (65-175); Non-African American GFR(CKD) 86.7 (60.0-200.0); Phosphorus 3.5 mg/dL (2.4-5.1); Potassium 4.2 mmol/L (3.5-5.5); Sodium 139 mmol/L (135-145); Total Iron Binding Capacity 326 ug/dL (228-460); Total Protein 7.1 g/dL (6.2-8.2)
[2022-09-07 07:23] LABS: Vitamin A 67 ug/dL (38-106)
== END ==
LOC: BARWHC3 13:38
PROVIDERS: ATTEND Surgery Plastic and Reconstructive Surgery
DX: E66.01 Morbid (severe) obesity due to excess calories (principal); Z68.43 Body mass index [BMI] 50.0-59.9, adult; K21.9 Gastro-esophageal reflux disease without esophagitis; I10 Essential (primary) hypertension; M19.90 Unspecified osteoarthritis, unspecified site; Z87.891 Personal history of nicotine dependence; E89.1 Postprocedural hypoinsulinemia; D50.8 Other iron deficiency anemias; D50.9 Iron deficiency anemia, unspecified; K91.2 Postsurgical malabsorption, not elsewhere classified; E45 Retarded development following protein-calorie malnutrition; E46 Unspecified protein-calorie malnutrition; E44.0 Moderate protein-calorie malnutrition; E44.1 Mild protein-calorie malnutrition; E55.9 Vitamin D deficiency, unspecified; K74.1 Hepatic sclerosis; N19 Unspecified kidney failure; T56.894A Toxic effect of other metals, undetermined, initial encounter; Z88.5 Allergy status to narcotic agent
CPT/HCPCS: 84425; 80061; 80053; 82607; 82728; 82746; 83540; 83550; 83735; 84100; 84443; 84590; 85027; 85610; 85730; 82306; 83970; G0463; 99211

== ENCOUNTER → 2022-10-17 | Outpatient (CLI) | payer MEDICARE, OTHER ==
[2022-10-17 15:37] VITALS: BP 128/81; PULSE 70; TEMP 98.6; BMI 53.4
--- NOTE | 2022-10-17 16:45 | P.BASOAP ---
Subjective Progress Note Date: 10/17/22 He wants skin removal surgery. He has lost 2 pounds. Highest 411 pounds. Wants to get 311 pounds. Iron was low. Recommend food diary journal Objective - Vital Signs Vital signs: Vital Signs Temp 98.6 F 10/17/22 15:34 Pulse 70 10/17/22 15:34 Resp BP 128/81 10/17/22 15:34 Pulse Ox FiO2 Intake & Output 10/16/22 10/17/22 10/17/22 18:59 06:59 18:59 Weight 154.675 kg Assessment/Plan Plan: Date: 10/17/22 Initial Weight: 175.812 kg Initial BMI: 60.7 Current Weight: 154.675 kg Current BMI: 53.4 Type of Surgery: Total Volume in Band: Previous Volume: Volume Removed: Volume Added: Band Size:
== END ==
LOC: BARWHC3 14:45
PROVIDERS: ATTEND Surgery Plastic and Reconstructive Surgery
DX: E66.01 Morbid (severe) obesity due to excess calories (principal); Z68.43 Body mass index [BMI] 50.0-59.9, adult; Z88.5 Allergy status to narcotic agent; Z88.8 Allergy status to other drugs, medicaments and biological substances; Z87.891 Personal history of nicotine dependence
CPT/HCPCS: 99211

== ENCOUNTER → 2022-11-21 | Outpatient (CLI) | payer MEDICARE, OTHER ==
[2022-11-21 16:02] VITALS: BP 122/84; PULSE 79; TEMP 97.7; BMI 53.1
--- NOTE | 2022-11-21 16:29 | P.BASOAP ---
Subjective Progress Note Date: 11/21/22 He is losing weight. He is walking. Labs follow up Objective - Vital Signs Vital signs: Vital Signs Temp 97.7 F 11/21/22 15:59 Pulse 79 11/21/22 15:59 Resp BP 122/84 11/21/22 15:59 Pulse Ox FiO2 Intake & Output 11/20/22 11/21/22 11/21/22 18:59 06:59 18:59 Weight 153.768 kg Assessment/Plan Plan: Date: 11/21/22 Initial Weight: 175.812 kg Initial BMI: 60.7 Current Weight: 153.768 kg Current BMI: 53.1 Type of Surgery: Total Volume in Band: Previous Volume: Volume Removed: Volume Added: Band Size:
== END ==
LOC: BARWHC3 15:51
PROVIDERS: ATTEND Surgery Plastic and Reconstructive Surgery
DX: E66.01 Morbid (severe) obesity due to excess calories (principal); Z68.43 Body mass index [BMI] 50.0-59.9, adult; Z88.5 Allergy status to narcotic agent; Z88.8 Allergy status to other drugs, medicaments and biological substances; Z87.891 Personal history of nicotine dependence
CPT/HCPCS: 99211